=== PATIENT | male | born 1980 | race Caucasian/White ===

== ENCOUNTER 2022-03-22 11:26 | Inpatient (IN) | payer OTHER, SELFPAY ==
[2022-03-22 11:37] VITALS: BP 129/86; BP 150/93; PULSE 119; PULSE 120; RESP 16; TEMP 37.4; O2SAT 98; O2SAT 99; BMI 35.9
--- NOTE | 2022-03-22 11:43 | MHC.CARE ---
Pt was seen by N [facility] in the community and is a bedsearch
--- NOTE | 2022-03-22 11:46 | ECG_ITS ---
Test Reason : MED CLEARANCE Blood Pressure : / mmHG Vent. Rate : 124 BPM Atrial Rate : 124 BPM P-R Int : 150 ms QRS Dur : 098 ms QT Int : 330 ms P-R-T Axes : 068 013 062 degrees QTc Int : 474 ms Sinus tachycardia Otherwise normal ECG No previous ECGs available Referred By: Zachary Thorpe Electronically Signed By:GAGANDEEP VÁZQUEZ
[2022-03-22 12:14] LABS: MANUAL DIFF FLAG NO
[2022-03-22 12:18] LABS: Basophils Absolute Auto 0.1 X10*3/uL (0.0-0.2); Basophils Percent Auto 0.7 % (0-2); Eosinophils Percent Auto 0.4 % (0-4); Hematocrit 42.3 % (42.0-52.0); Hemoglobin 14.2 g/dl (14.0-18.0); Imm Gran Abs Auto 0.02 X10*3/uL (0.00-0.03); Imm Gran Pct Auto 0.2 % (0.0-0.4); Lymphocytes Absolute Auto 2.2 X10*3/uL (1.2-4.9); Lymphocytes Percent Auto 26.3 % (20-40); Mean Corpuscular HGB Conc 33.6 g/dl (31.0-36.0); Mean Corpuscular Volume 83.4 fL (80.0-98.0); Mean Platelet Volume 8.7 fL (9.4-12.4); Monocytes Absolute Auto 0.5 X10*3/uL (0.1-1.2); Monocytes Percent Auto 5.6 % (2-11); Neutrophils Absolute Auto 5.5 x10*3/uL (2.0-8.3); Neutrophils Percent Auto 66.8 % (45-73); Platelet Count 340 X10*3/uL (160-400); Red Blood Count 5.07 X10*6/uL (4.60-5.80); Red Cell Distribution Width 13.4 % (11.0-16.0); White Blood Count 8.2 X10*3/uL (4.8-10.8)
[2022-03-22 12:21] LABS: Appearance Urine Clear; Color Urine Yellow; Glucose Urine UA Negative (Negative); Leukocyte Esterase Urine Negative (Negative); Nitrite Urine Negative (Negative); PH 5.5 (5.0-9.0); Specific Gravity - Urine 1.015 (1.005-1.025); Urine Blood Negative (Negative); Urine Ketones Negative (Negative); Urine Protein Negative (Neg-Trace)
[2022-03-22 12:33] LABS: Anion Gap 15 (12-20); Blood Urea Nitrogen 14 mg/dL (9-16); Calcium 9.8 mg/dL (8.4-10.2); Carbon Dioxide 22 mmol/L (22-29); Chloride 106 mmol/L (96-108); Creatinine Clr Calc Pharmacy 158.4; Estimated Glomerular Filt Rate > 60; Ethanol < 10 mg/dL; Glucose Random 163 mg/dL (60-115); Potassium 4.5 mmol/L (3.3-5.1); Sodium 138 mmol/L (135-145)
--- NOTE | 2022-03-22 12:34 | ED.PSYCH ---
HPI - Psych General Chief Complaint: Psychiatric Symptoms <Zachary Thorpe MD - Last Filed: 03/26/22 06:33> Stated Complaint: SECT 12,SI W/PLAN PER EMS <Zachary Thorpe MD - Last Filed: 03/26/22 06:33> Time Seen by Provider: 03/22/22 11:30 <Zachary Thorpe MD - Last Filed: 03/26/22 06:33> Source: patient and EMS <Zachary Thorpe MD - Last Filed: 03/26/22 06:33> History of Present Illness HPI Narrative: patient with a long history of depression states he is feeling suicidal today after an argument with a neighbor. His plan was to slit his wrist. EMS arrived before he attempted to harm himself. Last hospitalization was 2 months ago at [facility] for similar presentation. He states he has been taking his medication without missing doses. Last doses were this morning. Medication includes Depakote, lithium, Clozaril, risperidone, metformin, insulin. He denies physical complaints. No recent illness or change of medication. <Zachary Thorpe MD - Last Filed: 03/26/22 06:33> Related Data Home Medications: Home Medications Medication Instructions Recorded Confirmed clozapine 100 mg tablet 300 mg PO BEDTIME 03/22/22 03/22/22 clozapine 25 mg tablet 2 tab PO DAILY 03/22/22 03/22/22 divalproex 500 mg tablet,delayed 4 tab PO BEDTIME 03/22/22 03/22/22 release docusate sodium 100 mg capsule 1 cap PO DAILY PRN Constipation 03/22/22 03/22/22 insulin glargine 100 unit/mL (3 40 unit subcut DAILY 03/22/22 03/22/22 mL) subcutaneous pen (Lantus Solostar U-100 Insulin) lithium carbonate 300 mg capsule 1 cap PO BID 03/22/22 03/22/22 lorazepam 0.5 mg tablet 1 tab PO DAILY PRN Anxiety 03/22/22 03/22/22 metformin 1,000 mg tablet 1 tab PO BIDWM 03/22/22 03/22/22 risperidone 2 mg tablet 2 mg PO BID 03/22/22 03/22/22 sitagliptin 100 mg tablet (Januvia) 1 tab PO DAILY 03/22/22 03/22/22 <Zachary Thorpe MD - Last Filed: 03/26/22 06:33> Allergies/Adverse Reactions: Allergies Allergy/AdvReac Type Severity Reaction Status Date / Time No Known Allergies Allergy Verified 03/22/22 11:45 <Zachary Thorpe MD - Last Filed: 03/26/22 06:33> Review of Systems Constitutional: Comments: No fevers chills or weakness <Zachary Thorpe MD - Last Filed: 03/26/22 06:33> Cardiovascular: Comments: no chest pain <Zachary Thorpe MD - Last Filed: 03/26/22 06:33> Respiratory: Comments: no cough or shortness of breath <Zachary Thorpe MD - Last Filed: 03/26/22 06:33> Gastrointestinal: Comments: no abdominal pain <Zachary Thorpe MD - Last Filed: 03/26/22 06:33> Integumentary/Breasts: Comments: no rash <Zachary Thorpe MD - Last Filed: 03/26/22 06:33> Neurologic: Comments: no focal weakness <Zachary Thorpe MD - Last Filed: 03/26/22 06:33> [facility] Social History Social History: Social History Household Members: None Housing: Apartment Do you presently have visiting nurse or other home services: No Patient Tobacco Use Status: Current someday Tobacco user Tobacco use type: Cigarette Cigarette Packs Per Day: 0.3 Cigarettes Per Day: 6.0 Smoked in Last 30 Days: Yes e-Cigarette/Vaping Use: Never Used Patient Interested in Nicotine Replacement: Yes Patient Given Instructions on How to Stop Smoking: No Second Hand Smoke Exposure: No Use of substances other than those prescribed or required for medical reasons: No Currently Displaying Signs/Symptoms of Drug Intoxication Withdrawal: No Have you been hit, kicked, punched, or otherwise hurt by someone within the past year? If so, by whom?: No Do you feel safe in your current relationship?: No Current Relationship Is there a partner from a previous relationship who is making you feel unsafe now?: No Are you made to feel afraid or neglected: No Spiritual Healthcare Practices: Patient denies. Yarsani Healthcare Practices: Patient denies. Cultural Healthcare Practices: Patient denies. Advance Directives: No Advance Directives Information Provided: Yes Do you have thoughts of harming others: None Do you have a plan to hurt others: No Plan Recently lost weight without trying: Yes How much weight loss: 2-13 pounds Eating poorly because of decreased appetite: No Nutrition screen score: 3 Nutrition Risks: No Nutritional Risk Poor oral hygiene: Yes service: No Sexual orientation: Don't Know <Zachary Thorpe MD - Last Filed: 03/26/22 06:33> Physical Exam Vital Signs: Vital Signs: Last Vital Signs Temp 97.6 F 03/25/22 19:15 Pulse 128 H 03/25/22 19:15 Resp 16 03/25/22 19:15 BP 132/93 H 03/25/22 19:15 Pulse Ox 97 03/25/22 19:15 O2 Del Method 03/25/22 19:15 BMI result Body Mass Index 35.9 <Zachary Thorpe MD - Last Filed: 03/26/22 06:33> Vital Signs: Last Vital Signs Temp 97.6 F 03/25/22 19:15 Pulse 128 H 03/25/22 19:15 Resp 16 03/25/22 19:15 BP 132/93 H 03/25/22 19:15 Pulse Ox 97 03/25/22 19:15 O2 Del Method 03/25/22 19:15 BMI result Body Mass Index 35.9 <Greg Wu MD - Last Filed: 03/23/22 08:26> Const: Other: awake and alert in no acute distress <Zachary Thorpe MD - Last Filed: 03/26/22 06:33> Resp: Other: clear and equal bilaterally with good air entry. <Zachary Thorpe MD - Last Filed: 03/26/22 06:33> Cardio: Other: Regular rhythm. Mildly tachycardic. No murmurs rubs or gallops <Zachary Thorpe MD - Last Filed: 03/26/22 06:33> GI: Other: soft nontender nondistended <Zachary Thorpe MD - Last Filed: 03/26/22 06:33> Skin: Other: warm pink and dry without obvious rash <Zachary Thorpe MD - Last Filed: 03/26/22 06:33> Neuro: Other: no focal neuro deficits <Zachary Thorpe MD - Last Filed: 03/26/22 06:33> Course Course Course Narrative: depression with suicidal ideation. 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 Crisis consultation 20:34. Patient remains bed search. On medication reconciliation, it is noted that he is on Clozaril. His lab work, however, shows very low levels of lithium and valproic acid, Possibly indicating medication noncompliance. Will hold off on Clozaril until we are able to further delineate, and if he is not taking Clozaril over the past few days should restart at lower dosage, 12.5 mg b.i.d.. <Zachary Thorpe MD - Last Filed: 03/26/22 06:33> Reevaluation(s) Reevaluation #1: physician observation: patient still being evaluated for his depression while a bedsearch is occurring. Patient is calm and cooperative, non compliant with his medication <Greg Wu MD - Last Filed: 03/23/22 08:26> Time: 08:23 <Greg Wu MD - Last Filed: 03/23/22 08:26> MDM - Psych Lab Data Result diagrams: : 03/22/22 12:05 03/24/22 09:06 <Zachary Thorpe MD - Last Filed: 03/26/22 06:33> Labs: Lab Results 03/22/22 03/22/22 03/22/22 Range/Units 12:05 12:05 12:06 WBC 8.2 (4.8-10.8) X10*3/uL RBC 5.07 (4.60-5.80) X10*6/uL Hgb 14.2 (14.0-18.0) g/dl Hct 42.3 (42.0-52.0) % MCV 83.4 (80.0-98.0) fL MCH 28.0 (27.0-33.0) pg MCHC 33.6 (31.0-36.0) g/dl RDW 13.4 (11.0-16.0) % Plt Count 340 (160-400) X10*3/uL MPV 8.7 L (9.4-12.4) fL Immature Gran % (Auto) 0.2 (0.0-0.4) % Neut % (Auto) 66.8 (45-73) % Lymph % (Auto) 26.3 (20-40) % Falls % (Auto) 5.6 (2-11) % Eos % (Auto) 0.4 (0-4) % Baso % (Auto) 0.7 (0-2) % Lymph # (Auto) 2.2 (1.2-4.9) X10*3/uL Falls # (Auto) 0.5 (0.1-1.2) X10*3/uL Eos # (Auto) 0.0 (0.0-0.4) X10*3/uL Baso # (Auto) 0.1 (0.0-0.2) X10*3/uL Abs Immat Gran (auto) 0.02 (0.00-0.03) X10*3/uL Absolute Neuts (auto) 5.5 (2.0-8.3) x10*3/uL Absolute Nucleated RBC 0.000 (0.0-0.012) X10*3/uL Nucleated RBC % (auto) 0.0 (0.0-0.2) /100WBC Sodium 138 (135-145) mmol/L Potassium 4.5 (3.3-5.1) mmol/L Chloride 106 (96-108) mmol/L Carbon Dioxide 22 (22-29) mmol/L Anion Gap 15 (12-20) BUN 14 (9-16) mg/dL Creatinine 0.86 (0.5-1.4) mg/dL Estim Creat Clear Calc 158.4 Estimated GFR > 60 POC Glucose (60-115) mg/dL Random Glucose 163 H (60-115) mg/dL Calcium 9.8 (8.4-10.2) mg/dL Urine Color Urine Appearance Urine pH (5.0-9.0) Ur Specific [place] (1.005-1.025) Urine Protein (Neg-Trace) mg/dL Urine Glucose (UA) (Negative) mg/dL Urine Ketones (Negative) mg/dL Urine Blood (Negative) Urine Nitrite (Negative) Ur Leukocyte Esterase (Negative) Urine Opiates Screen (Not Detect) Urine Fentanyl Screen (Not Detect) Ur Barbiturates Screen (Not Detect) Valproic Acid (50.0-100.0) mcg/mL Ur Phencyclidine Scrn (Not Detect) Ur Amphetamines Screen (Not Detect) U Benzodiazepines Scrn (Not Detect) [place] (0.60-1.20) mmol/L Urine Cocaine Screen (Not Detect) U Marijuana (THC) Screen (Not Detect) Ethyl Alcohol < 10 mg/dL COVID-19 (BELEM) Negative (Negative) COVID-19 Clin Com See Note 03/22/22 03/22/22 03/22/22 Range/Units 12:06 12:06 15:39 WBC (4.8-10.8) X10*3/uL RBC (4.60-5.80) X10*6/uL Hgb (14.0-18.0) g/dl Hct (42.0-52.0) % MCV (80.0-98.0) fL MCH (27.0-33.0) pg MCHC (31.0-36.0) g/dl RDW (11.0-16.0) % Plt Count (160-400) X10*3/uL MPV (9.4-12.4) fL Immature Gran % (Auto) (0.0-0.4) % Neut % (Auto) (45-73) % Lymph % (Auto) (20-40) % Falls % (Auto) (2-11) % Eos % (Auto) (0-4) % Baso % (Auto) (0-2) % Lymph # (Auto) (1.2-4.9) X10*3/uL Falls # (Auto) (0.1-1.2) X10*3/uL Eos # (Auto) (0.0-0.4) X10*3/uL Baso # (Auto) (0.0-0.2) X10*3/uL Abs Immat Gran (auto) (0.00-0.03) X10*3/uL Absolute Neuts (auto) (2.0-8.3) x10*3/uL Absolute Nucleated RBC (0.0-0.012) X10*3/uL Nucleated RBC % (auto) (0.0-0.2) /100WBC Sodium (135-145) mmol/L Potassium (3.3-5.1) mmol/L Chloride (96-108) mmol/L Carbon Dioxide (22-29) mmol/L Anion Gap (12-20) BUN (9-16) mg/dL Creatinine (0.5-1.4) mg/dL Estim Creat Clear Calc Estimated GFR POC Glucose (60-115) mg/dL Random Glucose (60-115) mg/dL Calcium (8.4-10.2) mg/dL Urine Color Yellow Urine Appearance Clear Urine pH 5.5 (5.0-9.0) Ur Specific [place] 1.015 (1.005-1.025) Urine Protein Negative (Neg-Trace) mg/dL Urine Glucose (UA) Negative (Negative) mg/dL Urine Ketones Negative (Negative) mg/dL Urine Blood Negative (Negative) Urine Nitrite Negative (Negative) Ur Leukocyte Esterase Negative (Negative) Urine Opiates Screen Not Detected (Not Detect) Urine Fentanyl Screen Not Detected (Not Detect) Ur Barbiturates Screen Not Detected (Not Detect) Valproic Acid < 2.0 L (50.0-100.0) mcg/mL Ur Phencyclidine Scrn Not Detected (Not Detect) Ur Amphetamines Screen Not Detected (Not Detect) U Benzodiazepines Scrn Not Detected (Not Detect) [place] (0.60-1.20) mmol/L Urine Cocaine Screen Not Detected (Not Detect) U Marijuana (THC) Screen Not Detected (Not Detect) Ethyl Alcohol mg/dL COVID-19 (BELEM) (Negative) COVID-19 Clin Com 03/22/22 03/22/22 03/23/22 Range/Units 15:39 23:37 09:08 WBC (4.8-10.8) X10*3/uL RBC (4.60-5.80) X10*6/uL Hgb (14.0-18.0) g/dl Hct (42.0-52.0) % MCV (80.0-98.0) fL MCH (27.0-33.0) pg MCHC (31.0-36.0) g/dl RDW (11.0-16.0) % Plt Count (160-400) X10*3/uL MPV (9.4-12.4) fL Immature Gran % (Auto) (0.0-0.4) % Neut % (Auto) (45-73) % Lymph % (Auto) (20-40) % Falls % (Auto) (2-11) % Eos % (Auto) (0-4) % Baso % (Auto) (0-2) % Lymph # (Auto) (1.2-4.9) X10*3/uL Falls # (Auto) (0.1-1.2) X10*3/uL Eos # (Auto) (0.0-0.4) X10*3/uL Baso # (Auto) (0.0-0.2) X10*3/uL Abs Immat Gran (auto) (0.00-0.03) X10*3/uL Absolute Neuts (auto) (2.0-8.3) x10*3/uL Absolute Nucleated RBC (0.0-0.012) X10*3/uL Nucleated RBC % (auto) (0.0-0.2) /100WBC Sodium (135-145) mmol/L Potassium (3.3-5.1) mmol/L Chloride (96-108) mmol/L Carbon Dioxide (22-29) mmol/L Anion Gap (12-20) BUN (9-16) mg/dL Creatinine (0.5-1.4) mg/dL Estim Creat Clear Calc Estimated GFR POC Glucose 132 H (60-115) mg/dL Random Glucose (60-115) mg/dL Calcium (8.4-10.2) mg/dL Urine Color Urine Appearance Urine pH (5.0-9.0) Ur Specific [place] (1.005-1.025) Urine Protein (Neg-Trace) mg/dL Urine Glucose (UA) (Negative) mg/dL Urine Ketones (Negative) mg/dL Urine Blood (Negative) Urine Nitrite (Negative) Ur Leukocyte Esterase (Negative) Urine Opiates Screen (Not Detect) Urine Fentanyl Screen (Not Detect) Ur Barbiturates Screen (Not Detect) Valproic Acid (50.0-100.0) mcg/mL Ur Phencyclidine Scrn (Not Detect) Ur Amphetamines Screen (Not Detect) U Benzodiazepines Scrn (Not Detect) [place] 0.08 L (0.60-1.20) mmol/L Urine Cocaine Screen (Not Detect) U Marijuana (THC) Screen (Not Detect) Ethyl Alcohol mg/dL COVID-19 (BELEM) Negative (Negative) COVID-19 Clin Com See Note 03/23/22 Range/Units 12:28 WBC (4.8-10.8) X10*3/uL RBC (4.60-5.80) X10*6/uL Hgb (14.0-18.0) g/dl Hct (42.0-52.0) % MCV (80.0-98.0) fL MCH (27.0-33.0) pg MCHC (31.0-36.0) g/dl RDW (11.0-16.0) % Plt Count (160-400) X10*3/uL MPV (9.4-12.4) fL Immature Gran % (Auto) (0.0-0.4) % Neut % (Auto) (45-73) % Lymph % (Auto) (20-40) % Falls % (Auto) (2-11) % Eos % (Auto) (0-4) % Baso % (Auto) (0-2) % Lymph # (Auto) (1.2-4.9) X10*3/uL Falls # (Auto) (0.1-1.2) X10*3/uL Eos # (Auto) (0.0-0.4) X10*3/uL Baso # (Auto) (0.0-0.2) X10*3/uL Abs Immat Gran (auto) (0.00-0.03) X10*3/uL Absolute Neuts (auto) (2.0-8.3) x10*3/uL Absolute Nucleated RBC (0.0-0.012) X10*3/uL Nucleated RBC % (auto) (0.0-0.2) /100WBC Sodium (135-145) mmol/L Potassium (3.3-5.1) mmol/L Chloride (96-108) mmol/L Carbon Dioxide (22-29) mmol/L Anion Gap (12-20) BUN (9-16) mg/dL Creatinine (0.5-1.4) mg/dL Estim Creat Clear Calc Estimated GFR POC Glucose 128 H (60-115) mg/dL Random Glucose (60-115) mg/dL Calcium (8.4-10.2) mg/dL Urine Color Urine Appearance Urine pH (5.0-9.0) Ur Specific [place] (1.005-1.025) Urine Protein (Neg-Trace) mg/dL Urine Glucose (UA) (Negative) mg/dL Urine Ketones (Negative) mg/dL Urine Blood (Negative) Urine Nitrite (Negative) Ur Leukocyte Esterase (Negative) Urine Opiates Screen (Not Detect) Urine Fentanyl Screen (Not Detect) Ur Barbiturates Screen (Not Detect) Valproic Acid (50.0-100.0) mcg/mL Ur Phencyclidine Scrn (Not Detect) Ur Amphetamines Screen (Not Detect) U Benzodiazepines Scrn (Not Detect) [place] (0.60-1.20) mmol/L Urine Cocaine Screen (Not Detect) U Marijuana (THC) Screen (Not Detect) Ethyl Alcohol mg/dL COVID-19 (BELEM) (Negative) COVID-19 Clin Com <Zachary Thorpe MD - Last Filed: 03/26/22 06:33> Lab Results 03/22/22 03/22/22 03/22/22 Range/Units 12:05 12:05 12:06 WBC 8.2 (4.8-10.8) X10*3/uL RBC 5.07 (4.60-5.80) X10*6/uL Hgb 14.2 (14.0-18.0) g/dl Hct 42.3 (42.0-52.0) % MCV 83.4 (80.0-98.0) fL MCH 28.0 (27.0-33.0) pg MCHC 33.6 (31.0-36.0) g/dl RDW 13.4 (11.0-16.0) % Plt Count 340 (160-400) X10*3/uL MPV 8.7 L (9.4-12.4) fL Immature Gran % (Auto) 0.2 (0.0-0.4) % Neut % (Auto) 66.8 (45-73) % Lymph % (Auto) 26.3 (20-40) % Falls % (Auto) 5.6 (2-11) % Eos % (Auto) 0.4 (0-4) % Baso % (Auto) 0.7 (0-2) % Lymph # (Auto) 2.2 (1.2-4.9) X10*3/uL Falls # (Auto) 0.5 (0.1-1.2) X10*3/uL Eos # (Auto) 0.0 (0.0-0.4) X10*3/uL Baso # (Auto) 0.1 (0.0-0.2) X10*3/uL Abs Immat Gran (auto) 0.02 (0.00-0.03) X10*3/uL Absolute Neuts (auto) 5.5 (2.0-8.3) x10*3/uL Absolute Nucleated RBC 0.000 (0.0-0.012) X10*3/uL Nucleated RBC % (auto) 0.0 (0.0-0.2) /100WBC Sodium 138 (135-145) mmol/L Potassium 4.5 (3.3-5.1) mmol/L Chloride 106 (96-108) mmol/L Carbon Dioxide 22 (22-29) mmol/L Anion Gap 15 (12-20) BUN 14 (9-16) mg/dL Creatinine 0.86 (0.5-1.4) mg/dL Estim Creat Clear Calc 158.4 Estimated GFR > 60 POC Glucose (60-115) mg/dL Random Glucose 163 H (60-115) mg/dL Calcium 9.8 (8.4-10.2) mg/dL Urine Color Urine Appearance Urine pH (5.0-9.0) Ur Specific [place] (1.005-1.025) Urine Protein (Neg-Trace) mg/dL Urine Glucose (UA) (Negative) mg/dL Urine Ketones (Negative) mg/dL Urine Blood (Negative) Urine Nitrite (Negative) Ur Leukocyte Esterase (Negative) Urine Opiates Screen (Not Detect) Urine Fentanyl Screen (Not Detect) Ur Barbiturates Screen (Not Detect) Valproic Acid (50.0-100.0) mcg/mL Ur Phencyclidine Scrn (Not Detect) Ur Amphetamines Screen (Not Detect) U Benzodiazepines Scrn (Not Detect) [place] (0.60-1.20) mmol/L Urine Cocaine Screen (Not Detect) U Marijuana (THC) Screen (Not Detect) Ethyl Alcohol < 10 mg/dL COVID-19 (BELEM) Negative (Negative) COVID-19 Clin Com See Note 09/19/22 09/19/22 09/19/22 Range/Units 12:06 12:06 15:39 WBC (4.8-10.8) X10*3/uL RBC (4.60-5.80) X10*6/uL Hgb (14.0-18.0) g/dl Hct (42.0-52.0) % MCV (80.0-98.0) fL MCH (27.0-33.0) pg MCHC (31.0-36.0) g/dl RDW (11.0-16.0) % Plt Count (160-400) X10*3/uL MPV (9.4-12.4) fL Immature Gran % (Auto) (0.0-0.4) % Neut % (Auto) (45-73) % Lymph % (Auto) (20-40) % Falls % (Auto) (2-11) % Eos % (Auto) (0-4) % Baso % (Auto) (0-2) % Lymph # (Auto) (1.2-4.9) X10*3/uL Falls # (Auto) (0.1-1.2) X10*3/uL Eos # (Auto) (0.0-0.4) X10*3/uL Baso # (Auto) (0.0-0.2) X10*3/uL Abs Immat Gran (auto) (0.00-0.03) X10*3/uL Absolute Neuts (auto) (2.0-8.3) x10*3/uL Absolute Nucleated RBC (0.0-0.012) X10*3/uL Nucleated RBC % (auto) (0.0-0.2) /100WBC Sodium (135-145) mmol/L Potassium (3.3-5.1) mmol/L Chloride (96-108) mmol/L Carbon Dioxide (22-29) mmol/L Anion Gap (12-20) BUN (9-16) mg/dL Creatinine (0.5-1.4) mg/dL Estim Creat Clear Calc Estimated GFR POC Glucose (60-115) mg/dL Random Glucose (60-115) mg/dL Calcium (8.4-10.2) mg/dL Urine Color Yellow Urine Appearance Clear Urine pH 5.5 (5.0-9.0) Ur Specific [place] 1.015 (1.005-1.025) Urine Protein Negative (Neg-Trace) mg/dL Urine Glucose (UA) Negative (Negative) mg/dL Urine Ketones Negative (Negative) mg/dL Urine Blood Negative (Negative) Urine Nitrite Negative (Negative) Ur Leukocyte Esterase Negative (Negative) Urine Opiates Screen Not Detected (Not Detect) Urine Fentanyl Screen Not Detected (Not Detect) Ur Barbiturates Screen Not Detected (Not Detect) Valproic Acid < 2.0 L (50.0-100.0) mcg/mL Ur Phencyclidine Scrn Not Detected (Not Detect) Ur Amphetamines Screen Not Detected (Not Detect) U Benzodiazepines Scrn Not Detected (Not Detect) [place] (0.60-1.20) mmol/L Urine Cocaine Screen Not Detected (Not Detect) U Marijuana (THC) Screen Not Detected (Not Detect) Ethyl Alcohol mg/dL COVID-19 (BELEM) (Negative) COVID-19 Clin Com 03/22/22 03/22/22 03/23/22 Range/Units 15:39 23:37 09:08 WBC (4.8-10.8) X10*3/uL RBC (4.60-5.80) X10*6/uL Hgb (14.0-18.0) g/dl Hct (42.0-52.0) % MCV (80.0-98.0) fL MCH (27.0-33.0) pg MCHC (31.0-36.0) g/dl RDW (11.0-16.0) % Plt Count (160-400) X10*3/uL MPV (9.4-12.4) fL Immature Gran % (Auto) (0.0-0.4) % Neut % (Auto) (45-73) % Lymph % (Auto) (20-40) % Falls % (Auto) (2-11) % Eos % (Auto) (0-4) % Baso % (Auto) (0-2) % Lymph # (Auto) (1.2-4.9) X10*3/uL [place] # (Auto) (0.1-1.2) X10*3/uL Eos # (Auto) (0.0-0.4) X10*3/uL Baso # (Auto) (0.0-0.2) X10*3/uL Abs Immat Gran (auto) (0.00-0.03) X10*3/uL Absolute Neuts (auto) (2.0-8.3) x10*3/uL Absolute Nucleated RBC (0.0-0.012) X10*3/uL Nucleated RBC % (auto) (0.0-0.2) /100WBC Sodium (135-145) mmol/L Potassium (3.3-5.1) mmol/L Chloride (96-108) mmol/L Carbon Dioxide (22-29) mmol/L Anion Gap (12-20) BUN (9-16) mg/dL Creatinine (0.5-1.4) mg/dL Estim Creat Clear Calc Estimated GFR POC Glucose 132 H (60-115) mg/dL Random Glucose (60-115) mg/dL Calcium (8.4-10.2) mg/dL Urine Color Urine Appearance Urine pH (5.0-9.0) Ur Specific [place] (1.005-1.025) Urine Protein (Neg-Trace) mg/dL Urine Glucose (UA) (Negative) mg/dL Urine Ketones (Negative) mg/dL Urine Blood (Negative) Urine Nitrite (Negative) Ur Leukocyte Esterase (Negative) Urine Opiates Screen (Not Detect) Urine Fentanyl Screen (Not Detect) Ur Barbiturates Screen (Not Detect) Valproic Acid (50.0-100.0) mcg/mL Ur Phencyclidine Scrn (Not Detect) Ur Amphetamines Screen (Not Detect) U Benzodiazepines Scrn (Not Detect) [place] 0.08 L (0.60-1.20) mmol/L Urine Cocaine Screen (Not Detect) U Marijuana (THC) Screen (Not Detect) Ethyl Alcohol mg/dL COVID-19 (BELEM) Negative (Negative) COVID-19 Clin Com See Note 03/23/22 Range/Units 12:28 WBC (4.8-10.8) X10*3/uL RBC (4.60-5.80) X10*6/uL Hgb (14.0-18.0) g/dl Hct (42.0-52.0) % MCV (80.0-98.0) fL MCH (27.0-33.0) pg MCHC (31.0-36.0) g/dl RDW (11.0-16.0) % Plt Count (160-400) X10*3/uL MPV (9.4-12.4) fL Immature Gran % (Auto) (0.0-0.4) % Neut % (Auto) (45-73) % Lymph % (Auto) (20-40) % Falls % (Auto) (2-11) % Eos % (Auto) (0-4) % Baso % (Auto) (0-2) % Lymph # (Auto) (1.2-4.9) X10*3/uL Falls # (Auto) (0.1-1.2) X10*3/uL Eos # (Auto) (0.0-0.4) X10*3/uL Baso # (Auto) (0.0-0.2) X10*3/uL Abs Immat Gran (auto) (0.00-0.03) X10*3/uL Absolute Neuts (auto) (2.0-8.3) x10*3/uL Absolute Nucleated RBC (0.0-0.012) X10*3/uL Nucleated RBC % (auto) (0.0-0.2) /100WBC Sodium (135-145) mmol/L Potassium (3.3-5.1) mmol/L Chloride (96-108) mmol/L Carbon Dioxide (22-29) mmol/L Anion Gap (12-20) BUN (9-16) mg/dL Creatinine (0.5-1.4) mg/dL Estim Creat Clear Calc Estimated GFR POC Glucose 128 H (60-115) mg/dL Random Glucose (60-115) mg/dL Calcium (8.4-10.2) mg/dL Urine Color Urine Appearance Urine pH (5.0-9.0) Ur Specific [place] (1.005-1.025) Urine Protein (Neg-Trace) mg/dL Urine Glucose (UA) (Negative) mg/dL Urine Ketones (Negative) mg/dL Urine Blood (Negative) Urine Nitrite (Negative) Ur Leukocyte Esterase (Negative) Urine Opiates Screen (Not Detect) Urine Fentanyl Screen (Not Detect) Ur Barbiturates Screen (Not Detect) Valproic Acid (50.0-100.0) mcg/mL Ur Phencyclidine Scrn (Not Detect) Ur Amphetamines Screen (Not Detect) U Benzodiazepines Scrn (Not Detect) [place] (0.60-1.20) mmol/L Urine Cocaine Screen (Not Detect) U Marijuana (THC) Screen (Not Detect) Ethyl Alcohol mg/dL COVID-19 (BELEM) (Negative) COVID-19 Clin Com <Greg Wu MD - Last Filed: 03/23/22 08:26> Discharge Plan Discharge Clinical Impression: Suicidal ideation, Schizophrenia <Zachary Thorpe MD - Last Filed: 03/26/22 06:33> Patient Disposition: Admitted As Inpatient <Zachary Thorpe MD - Last Filed: 03/26/22 06:33> Interventions: Admission Worksheet (ED) Last Done: 03/23/22 14:21 <Zachary Thorpe MD - Last Filed: 03/26/22 06:33> Discharge Date/Time: 03/23/22 14:21 <Zachary Thorpe MD - Last Filed: 03/26/22 06:33>
[2022-03-22 12:35] LABS: Amphetamine Screen Urine Not Detected (Not Detect); Barbiturates, Urine Not Detected (Not Detect); Benzodiazepines Screen Urine Not Detected (Not Detect); Cannabinoid Screen Urine Not Detected (Not Detect); Cocaine Screen Urine Not Detected (Not Detect); Fentanyl, urine Not Detected (Not Detect); Opiate Screen Urine Not Detected (Not Detect); Phencyclidine Screen Urine Not Detected (Not Detect)
[2022-03-22 12:43] LABS: COVID-19 Test Negative (Negative); IDNOW Serial# 16C4AD1C
--- NOTE | 2022-03-22 14:57 | PC.NURSE ---
PT QUIET IN ROOM AFTER EATING LUNCH.
--- NOTE | 2022-03-22 15:27 | PC.NURSE ---
[facility] OUTREACH TEAM CALLED TO INQUIRE ABOUT PT. STAFF CHERYL MESESR IF NATHALY AGREES TO SHARE DISPOSITION -[phone]
--- NOTE | 2022-03-22 15:51 | PC.NURSE ---
PT BECAME MORE ANXIOUS AND AGITATED AFTER STAFF REQUESTED AN ADDITIONAL LAB DRAW. HE COOPERATED BUT IS REPETITIVE IN REQUESTING THE NEED FOR A [employer] LE[employer]. HE IS NOT REDIRECTABLE AT THIS TIME. BUT RETURNED TO HIS ROOM. HE DECLINED MEDS FOR HIS STATEMENT OF FEELING UNSAFE AND ANXIETY
[2022-03-22 16:01] LABS: Lithium 0.08 mmol/L (0.60-1.20)
[2022-03-22 16:13] LABS: Valproate < 2.0 mcg/mL (50.0-100.0)
--- NOTE | 2022-03-22 17:13 | PHA.MEDREC ---
Pharmacy Consult ? Medication Reconciliation Pharmacy has completed the medication reconciliation. Spoke with patient in the . Patient last took meds this morning. Patient states his clozaril dose is 50 mg in the am and 300 mg in the evening.
--- NOTE | 2022-03-22 17:27 | PC.NURSE ---
PT DEMONSTRATING A REPETITIVE BEHAVIOR OF PUTTING HIMSELF DOWN ON THE FLOOR. HE STATES HE DROPPED SOMETHING AND THEN LIES DOWN. HE LAUGHS AND GETS BACK UP
[2022-03-22] MEDS: LORazepam 0.5 MG TABLET PO (22:57)
[2022-03-22] MEDS: cloZAPine 25 MG TABLET 12.5 MG PO (22:57)
[2022-03-22 23:33] VITALS: BP 150/86; PULSE 100; RESP 18; TEMP 36.3; O2SAT 97
[2022-03-22 23:40] LABS: Glucose, Whole Blood 132 mg/dL (60-115)
--- NOTE | 2022-03-23 05:26 | PC.NURSE ---
Patient slept though the night, no distress observed/reported, patient reported e is compliant with his medication which is inconsistent with lab result. Depakote and lithium lab level which is low indicative of non compliant with medication, provider held the regular clozaril dose, initiated 12.5 mf BID/first dose administered last night, medication compliant, speech pressured/thought content delayed, thought process tangential, VS unremarkable, disposition per [facility] is section 12 inpatient bed search, will continue to monitor.
--- NOTE | 2022-03-23 07:25 | PC.NURSE ---
patient appears to remain at rest at present respirations are even and unlabored patient appears in no distress.
[2022-03-23] MEDS: cloZAPine 25 MG TABLET 12.5 MG PO ×2 (08:20→20:27)
[2022-03-23] MEDS: Insulin Glargine,Hum.rec.anlog 100 UNIT/ML 10 ML VIAL 40 UNIT SUBCUT (08:20)
[2022-03-23] MEDS: metFORMIN HCl 1,000 MG TABLET 1000 MG PO ×2 (08:20→17:01)
[2022-03-23] MEDS: risperiDONE 2 MG TABLET PO ×2 (08:20→20:27)
[2022-03-23] MEDS: Lithium Carbonate 300 MG CAPSULE PO ×2 (08:20→20:27)
[2022-03-23 09:12] VITALS: BP 141/93; PULSE 120; RESP 19; TEMP 36.3; O2SAT 97
[2022-03-23] MEDS: SITagliptin Phosphate 100 MG TABLET PO (09:29)
[2022-03-23 09:38] LABS: COVID-19 Test Negative (Negative)
[2022-03-23 12:35] LABS: Glucose, Whole Blood 128 mg/dL (60-115)
[2022-03-23 14:00] VITALS: BP 138/87; PULSE 118; RESP 16; TEMP 36.4; O2SAT 98
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
[2022-03-23] MEDS: Milk of Magnesia 30 ML ORAL.SUSP PO ×2 (18:13→20:28)
[2022-03-23 20:25] VITALS: BP 164/92; PULSE 136; RESP 20; TEMP 36.7; O2SAT 98
[2022-03-23] MEDS: hydrOXYzine HCL 25 MG TABLET PO (20:27)
[2022-03-23] MEDS: Divalproex Sodium 500 MG TABLET.DR 2000 MG PO (20:27)
[2022-03-23 20:38] LABS: Glucose, Whole Blood 117 mg/dL (60-115)
[2022-03-24 08:30] VITALS: BP 130/77; PULSE 114; RESP 20; TEMP 36.7; O2SAT 98
[2022-03-24] MEDS: Lithium Carbonate 300 MG CAPSULE PO ×2 (08:42→21:05)
[2022-03-24] MEDS: SITagliptin Phosphate 100 MG TABLET PO (08:43)
[2022-03-24] MEDS: metFORMIN HCl 1,000 MG TABLET 1000 MG PO ×2 (08:43→16:54)
[2022-03-24] MEDS: risperiDONE 2 MG TABLET PO ×2 (08:43→21:05)
[2022-03-24] MEDS: cloZAPine 25 MG TABLET 12.5 MG PO (08:43)
[2022-03-24 09:04] LABS: Glucose, Whole Blood 112 mg/dL (60-115)
[2022-03-24] MEDS: Insulin Glargine,Hum.rec.anlog 100 UNIT/ML 10 ML VIAL 40 UNIT SUBCUT (09:06)
[2022-03-24] MEDS: Milk of Magnesia 30 ML ORAL.SUSP PO (09:19)
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
[2022-03-24 09:33] LABS: Estimated Average Glucose 160 mg/dL; Hemoglobin A1c % 7.2 %
[2022-03-24 10:27] LABS: Alanine Aminotransferase 50 U/L (0-40); Albumin Level 4.6 g/dL (3.5-5.0); Alkaline Phosphatase 94 U/L (39-117); Anion Gap 14 (12-20); Aspartate Amino Transferase 42 U/L (5-37); Bilirubin Total 0.5 mg/dL (0.0-1.0); Blood Urea Nitrogen 12 mg/dL (9-16); Carbon Dioxide 24 mmol/L (22-29); Chloride 107 mmol/L (96-108); Cholesterol 128 mg/dL; Creatinine Clr Calc Pharmacy 136.2; Estimated Glomerular Filt Rate > 60; Free T4 (Free Thyroxine) 1.44 ng/dL (0.71-1.85); Glucose Fasting 109 mg/dL (60-99); HDL Cholesterol 43 mg/dL; LDL Cholesterol Calculated 73 mg/dl; Potassium 4.6 mmol/L (3.3-5.1); Sodium 140 mmol/L (135-145); Thyroid Stimulating Hormone 0.59 uIU/mL (0.32-4.0); Total Protein 7.6 g/dL (6.5-8.0); Triglycerides 61 mg/dL
[2022-03-24 10:45] LABS: Folate 11.3 ng/mL (> or = 4.0); Vitamin B12 626 pg/mL (200-900)
--- NOTE | 2022-03-24 13:39 | MHC.CLN ---
NUTRITION CONSULT FOR RECENT 10# WEIGHT LOSS. VISITED WITH PATIENT IN ROOM. STATED THAT HE IS EATING FINE. ASKED IF HE NEEDED ANY OTHER FOODS/SUPPLEMENT AND DECLINED. NO NEW NUTRITION INTERVENTIONS. RD AVAILABLE NEEDED.
[2022-03-24 17:00] LABS: Glucose, Whole Blood 124 mg/dL (60-115)
[2022-03-24 19:15] VITALS: BP 138/82; PULSE 110; RESP 16; TEMP 36.2; O2SAT 98
[2022-03-24] MEDS: Divalproex Sodium 500 MG TABLET.DR 2000 MG PO (21:05)
[2022-03-24] MEDS: cloZAPine 25 MG TABLET PO (21:05)
[2022-03-25 07:00] VITALS: BMI 67.9
[2022-03-25 08:10] VITALS: BP 131/76; RESP 18; TEMP 36.6; O2SAT 99
[2022-03-25 09:10] LABS: Glucose, Whole Blood 90 mg/dL (60-115)
[2022-03-25] MEDS: SITagliptin Phosphate 100 MG TABLET PO (09:13)
[2022-03-25] MEDS: metFORMIN HCl 1,000 MG TABLET 1000 MG PO ×2 (09:13→17:14)
[2022-03-25] MEDS: Lithium Carbonate 300 MG CAPSULE PO ×2 (09:13→20:44)
[2022-03-25] MEDS: cloZAPine 25 MG TABLET PO (09:13)
[2022-03-25] MEDS: Insulin Glargine,Hum.rec.anlog 100 UNIT/ML 10 ML VIAL 40 UNIT SUBCUT (09:14)
[2022-03-25] MEDS: risperiDONE 2 MG TABLET PO ×2 (09:14→20:43)
--- NOTE | 2022-03-25 13:30 | P.PNPSI_ITS ---
Subjective Subjective Date of Service: 03/25/22 Reason For Visit: SI/psychosis Subjective Notes: Conditional Voluntary Interim History: Pt continues to report hearing voices, flushing toilet in his room several times, when asked somewhat irritable. He denies SI/HI. He is in agreement to continue titration of clozaril. mostly in his bed, paranoia, but no aggression. No behavioral concerns Medication Compliance: Yes Review of Systems Constitutional: Reports lethargy Eyes: Reports no additional eye complaints Cardiovascular: Reports no additional cardiovascular complaints and Reports palpitations (tachycardia) Respiratory: Reports no additional respiratory complaints Gastrointestinal: Reports constipation Endocrine: Reports palpitations (tachycardia) Mental Status Exam Mental Status Exam Narrative: Appearance: casually groomed, fair hygiene in NAD Behavior:cooperative psychomotor: no agitation or retardation noted Speech:clear, onrmal rate/rhythm/volume, spontaneous Thought process:tangential but no loose associations. Thought content:paranoid delusions, hearing voices. Mood: frustrated Affect: congruent SI:none HI:none VH/AH:+AH Delusions:paranoid delusions Insight/judgment:fair x 2. Memory/cog: alert, oriented x 3. not formally tested. Diagnostics Vital Signs (24Hr): Vital Signs - 24 hr 03/24/22 19:15 03/25/22 08:10 Temperature 97.2 F 97.8 F Pulse Rate 110 H Respiratory Rate 16 18 Blood Pressure 138/82 131/76 Pulse Oximetry 98 99 Oxygen Delivery Method Room Air Room Air BMI result Body Mass Index 67.9 Labs Results: 03/22/22 12:05 03/24/22 09:06 Labs: Laboratory Results - last 48 hr 03/23/22 03/24/22 03/24/22 20:32 09:01 09:06 Sodium 140 Potassium 4.6 Chloride 107 Carbon Dioxide 24 Anion Gap 14 BUN 12 Creatinine 1.00 Estim Creat Clear Calc 136.2 Estimated GFR > 60 POC Glucose 117 H 112 Fasting Glucose 109 H Estimat Average Glucose Hemoglobin A1c % Calcium 9.0 D Total Bilirubin 0.5 AST 42 H ALT 50 H Alkaline Phosphatase 94 Total Protein 7.6 Albumin 4.6 Triglycerides 61 Cholesterol 128 LDL Cholesterol, Calc 73 HDL Cholesterol 43 Vitamin B12 Folate TSH 0.59 Free T4 1.44 03/24/22 03/24/22 03/24/22 09:06 09:06 16:53 Sodium Potassium Chloride Carbon Dioxide Anion Gap BUN Creatinine Estim Creat Clear Calc Estimated GFR POC Glucose 124 H Fasting Glucose Estimat Average Glucose 160 Hemoglobin A1c % 7.2 Calcium Total Bilirubin AST ALT Alkaline Phosphatase Total Protein Albumin Triglycerides Cholesterol LDL Cholesterol, Calc HDL Cholesterol Vitamin B12 626 Folate 11.3 TSH Free T4 03/25/22 09:05 Sodium Potassium Chloride Carbon Dioxide Anion Gap BUN Creatinine Estim Creat Clear Calc Estimated GFR POC Glucose 90 Fasting Glucose Estimat Average Glucose Hemoglobin A1c % Calcium Total Bilirubin AST ALT Alkaline Phosphatase Total Protein Albumin Triglycerides Cholesterol LDL Cholesterol, Calc HDL Cholesterol Vitamin B12 Folate TSH Free T4 Medications Medications Current Medications Acetaminophen (Acetaminophen 325 Mg Tablet) 650 mg PO Q6H PRN PRN Reason: Headache/Pain Mild Scale (1-3) Al Hydroxide/Mg Hydroxide (Magnesium Hydrox/Alum Hydrox 30 Ml Oral.Susp) 30 ml PO Q6H PRN PRN Reason: Heartburn/Nausea Clozapine (Clozapine 25 Mg Tablet) 50 mg PO BID [facility] Divalproex Sodium (Divalproex Sodium 500 Mg Tablet.Dr) 2,000 mg PO BEDTIME [facility] Last Admin: 03/24/22 21:05 Dose: 2,000 mg Docusate Sodium (Docusate Sodium 100 Mg Capsule) 100 mg PO DAILY PRN PRN Reason: Constipation Hydroxyzine HCl (Hydroxyzine Hcl 25 Mg Tablet) 25 mg PO Q6H PRN PRN Reason: Anxiety Last Admin: 03/23/22 20:27 Dose: 25 mg Insulin Glargine (Insulin Glargine,Hum.Rec.Anlog 100 Unit/Ml 10 Ml Vial) 40 unit SUBCUT DAILY [facility] Last Admin: 03/25/22 09:14 Dose: 40 unit [place] Carbonate ([place] Carbonate 300 Mg Capsule) 300 mg PO BID [facility] Last Admin: 03/25/22 09:13 Dose: 300 mg Lorazepam (Lorazepam 0.5 Mg Tablet) 0.5 mg PO DAILY PRN PRN Reason: Anxiety Last Admin: 03/22/22 22:57 Dose: 0.5 mg Magnesium Hydroxide (Milk Of Magnesia 30 Ml Oral.Susp) 30 ml PO DAILY PRN PRN Reason: Constipation Last Admin: 03/24/22 09:19 Dose: 30 ml Metformin HCl (Metformin Hcl 1,000 Mg Tablet) 1,000 mg PO BIDWM [facility] Last Admin: 03/25/22 09:13 Dose: 1,000 mg Nicotine Polacrilex (Nicotine Polacrilex 2 Mg Gum) 4 mg [place] Q2H PRN PRN Reason: Nicotine Cravings Risperidone (Risperidone 2 Mg Tablet) 2 mg PO BID [facility] Last Admin: 03/25/22 09:14 Dose: 2 mg Senna/Docusate Sodium (Sennosides/Docusate Sodium Tablet) 1 tab PO BID [facility] Sitagliptin Phosphate (Sitagliptin Phosphate 100 Mg Tablet) 100 mg PO DAILY [facility] Last Admin: 03/25/22 09:13 Dose: 100 mg Trazodone HCl (Trazodone Hcl 50 Mg Tablet) 50 mg PO BEDTIME PRN PRN Reason: Insomnia Allergies Allergies Allergy/AdvReac Type Severity Reaction Status Date / Time No Known Allergies Allergy Verified 03/22/22 11:45 Assessment & Plan Assessment & Plan (1) Schizophrenia: Status: Acute Code(s): F20.9 - Schizophrenia, unspecified Assessment and Plan: Mr. Zambrano is a 41 year-old male with hx of schizophrenia, self presented with SI with plan to cut wrist in context of increase AH and paranoid delusions. Pt reports throwing down the toilet medications as he feared they were tampered. We discussed risks, benefits and alternative treatment options. Pt agrees to restart clozaril and titrate dose. He reports constipation- add sennakot. He has tachycardia- does not want to start beta ayana. PLAN 1. Admit M3, CV, 15 min safety. 2. increase clozaril 25mg po BID- titrate daily 3. sennakot for constipation 4. collateral information 5. aftercare planning. 03/25 increase clozaril to 50mg po BID. continue daily titration of 25mg po I spent minutes with the patient and/or on the patient floor today, greater than?50% of which was spent counseling/coordinating care. Reason for contiued inpatient stay Substantial Risk for: harm to self and inability to function
[2022-03-25 19:15] VITALS: BP 132/93; PULSE 128; RESP 16; TEMP 36.4; O2SAT 97
[2022-03-25] MEDS: Sennosides/Docusate Sodium TABLET 1 TAB PO (20:43)
[2022-03-25] MEDS: cloZAPine 25 MG TABLET 50 MG PO (20:43)
[2022-03-25] MEDS: Divalproex Sodium 500 MG TABLET.DR 2000 MG PO (20:44)
[2022-03-25 21:17] LABS: Glucose, Whole Blood 143 mg/dL (60-115)
[2022-03-26 08:30] VITALS: BP 136/82; PULSE 120; TEMP 36.6; O2SAT 98
[2022-03-26] MEDS: Insulin Glargine,Hum.rec.anlog 100 UNIT/ML 10 ML VIAL 40 UNIT SUBCUT (09:13)
[2022-03-26] MEDS: cloZAPine 25 MG TABLET 50 MG PO (09:15)
[2022-03-26] MEDS: Sennosides/Docusate Sodium TABLET 1 TAB PO ×2 (09:15→20:38)
[2022-03-26] MEDS: SITagliptin Phosphate 100 MG TABLET PO (09:15)
[2022-03-26] MEDS: risperiDONE 2 MG TABLET PO ×2 (09:16→20:38)
[2022-03-26] MEDS: Lithium Carbonate 300 MG CAPSULE PO ×2 (09:16→20:37)
[2022-03-26] MEDS: metFORMIN HCl 1,000 MG TABLET 1000 MG PO ×2 (09:16→18:05)
[2022-03-26] MEDS: Magnesium Hydrox/Alum Hydrox 30 ML ORAL.SUSP PO (12:34)
--- NOTE | 2022-03-26 13:31 | HO.PSYCHPN ---
Subjective Subjective Date of Service: 03/26/22 Reason For Visit: SI/psychosis Subjective Notes: Conditional Voluntary Interim History: Pt continues to present with paranoid towards neighbors. He also continues to report AH. Some suspiciousness about his medications, inspecting them, reports they seem suspicious but in agreement to take them. No SI/HI. No aggression. Medication Compliance: Yes Review of Systems Constitutional: Reports lethargy Eyes: Reports no additional eye complaints Cardiovascular: Reports no additional cardiovascular complaints and Reports palpitations (tachycardia) Respiratory: Reports no additional respiratory complaints Gastrointestinal: Reports constipation Endocrine: Reports palpitations (tachycardia) Mental Status Exam Mental Status Exam Narrative: Appearance: casually groomed, fair hygiene in NAD Behavior:cooperative psychomotor: no agitation or retardation noted Speech:clear, onrmal rate/rhythm/volume, spontaneous Thought process:tangential but no loose associations. Thought content:paranoid delusions, hearing voices. Mood: frustrated Affect: congruent SI:none HI:none VH/AH:+AH Delusions:paranoid delusions Insight/judgment:fair x 2. Memory/cog: alert, oriented x 3. not formally tested. Diagnostics Vital Signs (24Hr): Vital Signs - 24 hr 03/25/22 19:15 03/26/22 08:30 Temperature 97.6 F 97.9 F Pulse Rate 128 H 120 H Respiratory Rate 16 Blood Pressure 132/93 H 136/82 Pulse Oximetry 97 98 Oxygen Delivery Method Room Air Room Air BMI result Body Mass Index 67.9 Labs Results: 03/22/22 12:05 03/24/22 09:06 Labs: Laboratory Results - last 48 hr 03/24/22 03/25/22 03/25/22 16:53 09:05 21:13 POC Glucose 124 H 90 143 H Medications Medications Current Medications Acetaminophen (Acetaminophen 325 Mg Tablet) 650 mg PO Q6H PRN PRN Reason: Headache/Pain Mild Scale (1-3) Al Hydroxide/Mg Hydroxide (Magnesium Hydrox/Alum Hydrox 30 Ml Oral.Susp) 30 ml PO Q6H PRN PRN Reason: Heartburn/Nausea Last Admin: 03/26/22 12:34 Dose: 30 ml Clozapine (Clozapine 25 Mg Tablet) 50 mg PO BID [facility] Last Admin: 03/26/22 09:15 Dose: 50 mg Divalproex Sodium (Divalproex Sodium 500 Mg Tablet.) 2,000 mg PO BEDTIME [facility] Last Admin: 03/25/22 20:44 Dose: 2,000 mg Hydroxyzine HCl (Hydroxyzine Hcl 25 Mg Tablet) 25 mg PO Q6H PRN PRN Reason: Anxiety Last Admin: 03/23/22 20:27 Dose: 25 mg Insulin Glargine (Insulin Glargine,Hum.Rec.Anlog 100 Unit/Ml 10 Ml Vial) 40 unit SUBCUT DAILY [facility] Last Admin: 03/26/22 09:13 Dose: 40 unit [place] Carbonate ([place] Carbonate 300 Mg Capsule) 300 mg PO BID [facility] Last Admin: 03/26/22 09:16 Dose: 300 mg Lorazepam (Lorazepam 0.5 Mg Tablet) 0.5 mg PO DAILY PRN PRN Reason: Anxiety Last Admin: 03/22/22 22:57 Dose: 0.5 mg Magnesium Hydroxide (Milk Of Magnesia 30 Ml Oral.Susp) 30 ml PO DAILY PRN PRN Reason: Constipation Last Admin: 03/24/22 09:19 Dose: 30 ml Metformin HCl (Metformin Hcl 1,000 Mg Tablet) 1,000 mg PO BIDWM [facility] Last Admin: 03/26/22 09:16 Dose: 1,000 mg Nicotine Polacrilex (Nicotine Polacrilex 2 Mg Gum) 4 mg [place] Q2H PRN PRN Reason: Nicotine Cravings Risperidone (Risperidone 2 Mg Tablet) 2 mg PO BID [facility] Last Admin: 03/26/22 09:16 Dose: 2 mg Senna/Docusate Sodium (Sennosides/Docusate Sodium Tablet) 1 tab PO BID [facility] Last Admin: 03/26/22 09:15 Dose: 1 tab Sitagliptin Phosphate (Sitagliptin Phosphate 100 Mg Tablet) 100 mg PO DAILY [facility] Last Admin: 03/26/22 09:15 Dose: 100 mg Trazodone HCl (Trazodone Hcl 50 Mg Tablet) 50 mg PO BEDTIME PRN PRN Reason: Insomnia Allergies Allergies Allergy/AdvReac Type Severity Reaction Status Date / Time No Known Allergies Allergy Verified 03/22/22 11:45 Assessment & Plan Assessment & Plan (1) Schizophrenia: Status: Acute Code(s): F20.9 - Schizophrenia, unspecified Assessment and Plan: Mr. Zambrano is a 41 year-old male with hx of schizophrenia, self presented with SI with plan to cut wrist in context of increase AH and paranoid delusions. Pt reports throwing down the toilet medications as he feared they were tampered. We discussed risks, benefits and alternative treatment options. Pt agrees to restart clozaril and titrate dose. He reports constipation- add sennakot. He has tachycardia- does not want to start beta ayana. PLAN 1. Admit M3, CV, 15 min safety. 2. increase clozaril 25mg po BID- titrate daily 3. sennakot for constipation 4. collateral information 5. aftercare planning. 03/25 increase clozaril to 50mg po BID. continue daily titration of 25mg po 03/26 increase clozaril to 75mg po BID I spent minutes with the patient and/or on the patient floor today, greater than?50% of which was spent counseling/coordinating care. Reason for contiued inpatient stay Substantial Risk for: harm to self and inability to function
[2022-03-26 18:00] VITALS: BP 150/84; PULSE 125; RESP 19; TEMP 36.4; O2SAT 98
[2022-03-26] MEDS: Divalproex Sodium 500 MG TABLET.DR 2000 MG PO (20:37)
[2022-03-26] MEDS: cloZAPine 25 MG TABLET 75 MG PO (20:37)
[2022-03-27 00:08] LABS: Glucose, Whole Blood 119 mg/dL (60-115)
[2022-03-27 00:08] LABS: Glucose, Whole Blood 96 mg/dL (60-115)
--- NOTE | 2022-03-27 08:02 | HO.PSYCHPN ---
Subjective Subjective Date of Service: 03/27/22 Reason For Visit: SI/psychosis Subjective Notes: Conditional Voluntary Healthcare Proxy: No Guardianship: No Medical Problems Affecting Mental Status: No Interim History: Patient was seen and discussed in rounds today. Records and plans were reviewed. He is being increased on his cross 0 x 25 mg daily which was implemented today. He has been isolative. No reports of anxiety or depression. He does have some auditory hallucinations but no visual. He is moderately social and pleasant. Eating and sleeping adequately. His auditory hallucinations are not command in nature. No SI. Medication Compliance: Yes Side effects from medications: No Attending Groups: Intermittent Review of Systems Review of Systems Yes all other systems are reviewed and are negative Eyes: Reports no additional eye complaints Cardiovascular: Reports no additional cardiovascular complaints and Reports palpitations (tachycardia) Respiratory: Reports no additional respiratory complaints Endocrine: Reports palpitations (tachycardia) Mental Status Exam Mental Status Exam Narrative: In today's visit he is alert, oriented and pleasant. Normal speech. Brief answers. Little eye contact. Affect is constricted. Admits to auditory hallucinations. No visual hallucinations. Some paranoia and delusions present and reported. No SI. Cognitively has slow thought processes but grossly intact. Judgment intact Diagnostics Vital Signs (24Hr): Vital Signs - 24 hr 03/26/22 08:30 03/26/22 18:00 Temperature 97.9 F 97.6 F Pulse Rate 120 H 125 H Respiratory Rate 19 Blood Pressure 136/82 150/84 H Pulse Oximetry 98 98 Oxygen Delivery Method Room Air Room Air BMI result Body Mass Index 67.9 Labs Results: 03/22/22 12:05 03/24/22 09:06 Labs: Laboratory Results - last 48 hr 03/25/22 03/25/22 03/26/22 09:05 21:13 08:59 POC Glucose 90 143 H 96 03/26/22 18:04 POC Glucose 119 H Medications Medications Current Medications Acetaminophen (Acetaminophen 325 Mg Tablet) 650 mg PO Q6H PRN PRN Reason: Headache/Pain Mild Scale (1-3) Al Hydroxide/Mg Hydroxide (Magnesium Hydrox/Alum Hydrox 30 Ml Oral.Susp) 30 ml PO Q6H PRN PRN Reason: Heartburn/Nausea Last Admin: 03/26/22 12:34 Dose: 30 ml Clozapine (Clozapine 100 Mg Tablet) 100 mg PO BEDTIME [facility] Divalproex Sodium (Divalproex Sodium 500 Mg Tablet.) 2,000 mg PO BEDTIME [facility] Last Admin: 03/26/22 20:37 Dose: 2,000 mg Hydroxyzine HCl (Hydroxyzine Hcl 25 Mg Tablet) 25 mg PO Q6H PRN PRN Reason: Anxiety Last Admin: 03/23/22 20:27 Dose: 25 mg Insulin Glargine (Insulin Glargine,Hum.Rec.Anlog 100 Unit/Ml 10 Ml Vial) 40 unit SUBCUT DAILY [facility] Last Admin: 03/26/22 09:13 Dose: 40 unit [place] Carbonate ([place] Carbonate 300 Mg Capsule) 300 mg PO BID [facility] Last Admin: 03/26/22 20:37 Dose: 300 mg Lorazepam (Lorazepam 0.5 Mg Tablet) 0.5 mg PO DAILY PRN PRN Reason: Anxiety Last Admin: 03/22/22 22:57 Dose: 0.5 mg Magnesium Hydroxide (Milk Of Magnesia 30 Ml Oral.Susp) 30 ml PO DAILY PRN PRN Reason: Constipation Last Admin: 03/24/22 09:19 Dose: 30 ml Metformin HCl (Metformin Hcl 1,000 Mg Tablet) 1,000 mg PO BIDWM [facility] Last Admin: 03/26/22 18:05 Dose: 1,000 mg Nicotine Polacrilex (Nicotine Polacrilex 2 Mg Gum) 4 mg BUCCAL Q2H PRN PRN Reason: Nicotine Cravings Risperidone (Risperidone 2 Mg Tablet) 2 mg PO BID [facility] Last Admin: 03/26/22 20:38 Dose: 2 mg Senna/Docusate Sodium (Sennosides/Docusate Sodium Tablet) 1 tab PO BID [facility] Last Admin: 03/26/22 20:38 Dose: 1 tab Sitagliptin Phosphate (Sitagliptin Phosphate 100 Mg Tablet) 100 mg PO DAILY [facility] Last Admin: 03/26/22 09:15 Dose: 100 mg Trazodone HCl (Trazodone Hcl 50 Mg Tablet) 50 mg PO BEDTIME PRN PRN Reason: Insomnia Allergies Allergies Allergy/AdvReac Type Severity Reaction Status Date / Time No Known Allergies Allergy Verified 03/22/22 11:45 Assessment & Plan Assessment & Plan (1) Schizophrenia: Status: Acute Code(s): F20.9 - Schizophrenia, unspecified Assessment and Plan: Mr. Zambrano is a 41 year-old male with hx of schizophrenia, self presented with SI with plan to cut wrist in context of increase AH and paranoid delusions. Pt reports throwing down the toilet medications as he feared they were tampered. We discussed risks, benefits and alternative treatment options. Pt agrees to restart clozaril and titrate dose. He reports constipation- add sennakot. He has tachycardia- does not want to start beta ayana. PLAN 1. Admit M3, CV, 15 min safety. 2. increase clozaril 25mg po BID- titrate daily 3. sennakot for constipation 4. collateral information 5. aftercare planning. 03/25 increase clozaril to 50mg po BID. continue daily titration of 25mg po 03/26 increase clozaril to 75mg po BID 03/27: Continue current regimen and plans. Clozaril was increased by 25 mg today with his bedtime dose I spent minutes with the patient and/or on the patient floor today, greater than?50% of which was spent counseling/coordinating care. Patient educated on: medication risk/benefits Reason for contiued inpatient stay Substantial Risk for: med/psych decompensation
[2022-03-27 08:29] LABS: Glucose, Whole Blood 96 mg/dL (60-115)
[2022-03-27 08:30] VITALS: BP 124/88; PULSE 125; RESP 18; TEMP 36.6; O2SAT 98
[2022-03-27] MEDS: Insulin Glargine,Hum.rec.anlog 100 UNIT/ML 10 ML VIAL 40 UNIT SUBCUT (08:54)
[2022-03-27] MEDS: Lithium Carbonate 300 MG CAPSULE PO ×2 (08:56→21:04)
[2022-03-27] MEDS: Sennosides/Docusate Sodium TABLET 1 TAB PO ×2 (08:56→21:04)
[2022-03-27] MEDS: risperiDONE 2 MG TABLET PO ×2 (08:56→21:04)
[2022-03-27] MEDS: metFORMIN HCl 1,000 MG TABLET 1000 MG PO ×2 (08:56→21:03)
[2022-03-27] MEDS: SITagliptin Phosphate 100 MG TABLET PO (08:57)
[2022-03-27] MEDS: Milk of Magnesia 30 ML ORAL.SUSP PO (10:18)
[2022-03-27] MEDS: cloZAPine 100 MG TABLET PO (21:04)
[2022-03-27] MEDS: Divalproex Sodium 500 MG TABLET.DR 2000 MG PO (21:04)
--- NOTE | 2022-03-28 01:09 | PC.NURSE ---
Pt declined all assessments, asks questions but does not wait for answers and interrupts responses. Pt stated during medication round he wanted to make sure all the medications were correct and he had a list so he would know. He was offered to read the labels on each medication and he declined. Instead he poured the unwrapped medication from the medication cup onto a table, looked at and appeared to count the pills, and said they were all there. Medication adherent. Pt was A&O to situation, very brief interactions, ?Yes,? he will take medication, ?No? he will not allow VS assessment, ?No,? he will not answer any questions. Otherwise cooperative and polite.
[2022-03-28 08:25] LABS: Glucose, Whole Blood 88 mg/dL (60-115)
[2022-03-28] MEDS: SITagliptin Phosphate 100 MG TABLET PO (08:30)
[2022-03-28] MEDS: metFORMIN HCl 1,000 MG TABLET 1000 MG PO (08:30)
[2022-03-28] MEDS: risperiDONE 2 MG TABLET PO ×2 (08:30→21:28)
[2022-03-28] MEDS: Lithium Carbonate 300 MG CAPSULE PO ×2 (08:30→21:28)
[2022-03-28] MEDS: Sennosides/Docusate Sodium TABLET 1 TAB PO ×2 (08:30→21:28)
[2022-03-28] MEDS: Insulin Glargine,Hum.rec.anlog 100 UNIT/ML 10 ML VIAL 40 UNIT SUBCUT (08:37)
--- NOTE | 2022-03-28 09:24 | HO.PSYCHPN ---
Subjective Subjective Date of Service: 03/28/22 Reason For Visit: SI/psychosis Subjective Notes: Conditional Voluntary Healthcare Proxy: No Guardianship: No Medical Problems Affecting Mental Status: No Interim History: Patient was seen and discussed in rounds today. Records and plans were reviewed. He has been doing fairly well and is eating and sleeping adequately. He is med compliant. This morning he wanted to refuse his point of care before his insulin being given but finally agreed to do so. He is preoccupied with his medications and checks and rechecks what he is given. No SI. No auditory or visual hallucinations. No changes were implemented today. I did not increase his Clozaril today after the increase yesterday. Medication Compliance: Yes Side effects from medications: No Attending Groups: Intermittent Review of Systems Review of Systems Yes all other systems are reviewed and are negative Eyes: Reports no additional eye complaints Cardiovascular: Reports no additional cardiovascular complaints and Reports palpitations (tachycardia) Respiratory: Reports no additional respiratory complaints Endocrine: Reports palpitations (tachycardia) Mental Status Exam Mental Status Exam Narrative: In today's visit he is alert, oriented and pleasant. Normal speech. Brief answers. Little eye contact. Affect is constricted. Admits to auditory hallucinations. No visual hallucinations. less paranoia and delusions present. No SI. Cognitively has slow thought processes but grossly intact. Judgment intact Diagnostics Vital Signs (24Hr): BMI result Body Mass Index 67.9 Labs Results: 03/22/22 12:05 03/24/22 09:06 Labs: Laboratory Results - last 48 hr 03/26/22 03/26/22 03/27/22 08:59 18:04 08:25 POC Glucose 96 119 H 96 03/28/22 08:22 POC Glucose 88 Medications Medications Current Medications Acetaminophen (Acetaminophen 325 Mg Tablet) 650 mg PO Q6H PRN PRN Reason: Headache/Pain Mild Scale (1-3) Al Hydroxide/Mg Hydroxide (Magnesium Hydrox/Alum Hydrox 30 Ml Oral.Susp) 30 ml PO Q6H PRN PRN Reason: Heartburn/Nausea Last Admin: 03/26/22 12:34 Dose: 30 ml Clozapine (Clozapine 100 Mg Tablet) 100 mg PO BEDTIME [facility] Last Admin: 03/27/22 21:04 Dose: 100 mg Divalproex Sodium (Divalproex Sodium 500 Mg Tablet.) 2,000 mg PO BEDTIME [facility] Last Admin: 03/27/22 21:04 Dose: 2,000 mg Hydroxyzine HCl (Hydroxyzine Hcl 25 Mg Tablet) 25 mg PO Q6H PRN PRN Reason: Anxiety Last Admin: 03/23/22 20:27 Dose: 25 mg Insulin Glargine (Insulin Glargine,Hum.Rec.Anlog 100 Unit/Ml 10 Ml Vial) 40 unit SUBCUT DAILY [facility] Last Admin: 03/28/22 08:37 Dose: 40 unit [place] Carbonate ([place] Carbonate 300 Mg Capsule) 300 mg PO BID [facility] Last Admin: 03/28/22 08:30 Dose: 300 mg Magnesium Hydroxide (Milk Of Magnesia 30 Ml Oral.Susp) 30 ml PO DAILY PRN PRN Reason: Constipation Last Admin: 03/27/22 10:18 Dose: 30 ml Metformin HCl (Metformin Hcl 1,000 Mg Tablet) 1,000 mg PO BIDWM [facility] Last Admin: 03/28/22 08:30 Dose: 1,000 mg Nicotine Polacrilex (Nicotine Polacrilex 2 Mg Gum) 4 mg BUCCAL Q2H PRN PRN Reason: Nicotine Cravings Risperidone (Risperidone 2 Mg Tablet) 2 mg PO BID [facility] Last Admin: 03/28/22 08:30 Dose: 2 mg Senna/Docusate Sodium (Sennosides/Docusate Sodium Tablet) 1 tab PO BID [facility] Last Admin: 03/28/22 08:30 Dose: 1 tab Sitagliptin Phosphate (Sitagliptin Phosphate 100 Mg Tablet) 100 mg PO DAILY [facility] Last Admin: 03/28/22 08:30 Dose: 100 mg Trazodone HCl (Trazodone Hcl 50 Mg Tablet) 50 mg PO BEDTIME PRN PRN Reason: Insomnia Allergies Allergies Allergy/AdvReac Type Severity Reaction Status Date / Time No Known Allergies Allergy Verified 03/22/22 11:45 Assessment & Plan Assessment & Plan (1) Schizophrenia: Status: Acute Code(s): F20.9 - Schizophrenia, unspecified Assessment and Plan: Mr. Zambrano is a 41 year-old male with hx of schizophrenia, self presented with SI with plan to cut wrist in context of increase AH and paranoid delusions. Pt reports throwing down the toilet medications as he feared they were tampered. We discussed risks, benefits and alternative treatment options. Pt agrees to restart clozaril and titrate dose. He reports constipation- add sennakot. He has tachycardia- does not want to start beta ayana. PLAN 1. Admit M3, CV, 15 min safety. 2. increase clozaril 25mg po BID- titrate daily 3. sennakot for constipation 4. collateral information 5. aftercare planning. 03/25 increase clozaril to 50mg po BID. continue daily titration of 25mg po 03/26 increase clozaril to 75mg po BID 03/27: Continue current regimen and plans. Clozaril was increased by 25 mg today with his bedtime dose 03/28: Continue current regimen and plans. Clozaril was not increased today I spent minutes with the patient and/or on the patient floor today, greater than?50% of which was spent counseling/coordinating care. Reason for contiued inpatient stay Substantial Risk for: med/psych decompensation
[2022-03-28 21:28] VITALS: BP 134/83; PULSE 114; RESP 16; TEMP 36.6; O2SAT 97
[2022-03-28] MEDS: Divalproex Sodium 500 MG TABLET.DR 2000 MG PO (21:28)
[2022-03-28] MEDS: cloZAPine 100 MG TABLET PO (21:28)
[2022-03-29 08:01] LABS: Glucose, Whole Blood 113 mg/dL (60-115)
[2022-03-29] MEDS: Insulin Glargine,Hum.rec.anlog 100 UNIT/ML 10 ML VIAL 40 UNIT SUBCUT (08:23)
[2022-03-29] MEDS: Sennosides/Docusate Sodium TABLET 1 TAB PO ×2 (08:24→22:31)
[2022-03-29] MEDS: metFORMIN HCl 1,000 MG TABLET 1000 MG PO (08:24)
[2022-03-29] MEDS: risperiDONE 2 MG TABLET PO ×2 (08:24→22:32)
[2022-03-29] MEDS: Lithium Carbonate 300 MG CAPSULE PO ×2 (08:24→22:32)
[2022-03-29] MEDS: SITagliptin Phosphate 100 MG TABLET PO (08:25)
[2022-03-29 08:47] LABS: Neut%MD 51.7 %; Neutrophils Absolute Auto 4.2 x10*3/uL (2.0-8.3); WBCANC 8.1 X10*3/uL
[2022-03-29] MEDS: Milk of Magnesia 30 ML ORAL.SUSP PO (09:50)
--- NOTE | 2022-03-29 12:26 | P.PNPSI_ITS ---
Subjective Subjective Date of Service: 03/29/22 Reason For Visit: SI/psychosis Subjective Notes: Conditional Voluntary Interim History: Pt reports having a good weekend. He reports he continues to hear voices. He reports he is not hearing neighbors. He denies SI/HI. He reports feeling calmer than when he came here. He is taking medications as prescribed, titrating clozaril to previous dose of about 300mg/daily. NO behavioral concerns Per nursing, mostly in his room. Medication Compliance: Yes Side effects from medications: No Review of Systems Review of Systems Yes all other systems are reviewed and are negative Constitutional: Reports lethargy Eyes: Reports no additional eye complaints Cardiovascular: Reports no additional cardiovascular complaints and Reports palpitations (tachycardia) Respiratory: Reports no additional respiratory complaints Gastrointestinal: Reports constipation Endocrine: Reports palpitations (tachycardia) Mental Status Exam Mental Status Exam Narrative: In today's visit he is alert, oriented and pleasant. Normal speech. Brief answers. Little eye contact. Affect is constricted. Admits to auditory hallucinations. No visual hallucinations. less paranoia and delusions present. No SI. Cognitively has slow thought processes but grossly intact. Judgment intact Diagnostics Vital Signs (24Hr): Vital Signs - 24 hr 03/28/22 21:28 Temperature 97.9 F Pulse Rate 114 H Respiratory Rate 16 Blood Pressure 134/83 Pulse Oximetry 97 Oxygen Delivery Method Room Air BMI result Body Mass Index 67.9 Labs Results: 03/22/22 12:05 03/24/22 09:06 Labs: Laboratory Results - last 48 hr 03/28/22 03/29/22 03/29/22 08:22 07:57 08:31 Absolute Neuts (auto) 4.2 POC Glucose 88 113 Medications Medications Current Medications Acetaminophen (Acetaminophen 325 Mg Tablet) 650 mg PO Q6H PRN PRN Reason: Headache/Pain Mild Scale (1-3) Al Hydroxide/Mg Hydroxide (Magnesium Hydrox/Alum Hydrox 30 Ml Oral.Susp) 30 ml PO Q6H PRN PRN Reason: Heartburn/Nausea Last Admin: 03/26/22 12:34 Dose: 30 ml Clozapine (Clozapine 100 Mg Tablet) 100 mg PO BEDTIME [facility] Last Admin: 03/28/22 21:28 Dose: 100 mg Divalproex Sodium (Divalproex Sodium 500 Mg Tablet.) 2,000 mg PO BEDTIME [facility] Last Admin: 03/28/22 21:28 Dose: 2,000 mg Hydroxyzine HCl (Hydroxyzine Hcl 25 Mg Tablet) 25 mg PO Q6H PRN PRN Reason: Anxiety Last Admin: 03/23/22 20:27 Dose: 25 mg Insulin Glargine (Insulin Glargine,Hum.Rec.Anlog 100 Unit/Ml 10 Ml Vial) 40 unit SUBCUT DAILY [facility] Last Admin: 03/29/22 08:23 Dose: 40 unit [place] Carbonate ([place] Carbonate 300 Mg Capsule) 300 mg PO BID [facility] Last Admin: 03/29/22 08:24 Dose: 300 mg Magnesium Hydroxide (Milk Of Magnesia 30 Ml Oral.Susp) 30 ml PO DAILY PRN PRN Reason: Constipation Last Admin: 03/29/22 09:50 Dose: 30 ml Metformin HCl (Metformin Hcl 1,000 Mg Tablet) 1,000 mg PO BIDWM [facility] Last Admin: 03/29/22 08:24 Dose: 1,000 mg Nicotine Polacrilex (Nicotine Polacrilex 2 Mg Gum) 4 mg BUCCAL Q2H PRN PRN Reason: Nicotine Cravings Risperidone (Risperidone 2 Mg Tablet) 2 mg PO BID [facility] Last Admin: 03/29/22 08:24 Dose: 2 mg Senna/Docusate Sodium (Sennosides/Docusate Sodium Tablet) 1 tab PO BID [facility] Last Admin: 03/29/22 08:24 Dose: 1 tab Sitagliptin Phosphate (Sitagliptin Phosphate 100 Mg Tablet) 100 mg PO DAILY [facility] Last Admin: 03/29/22 08:25 Dose: 100 mg Trazodone HCl (Trazodone Hcl 50 Mg Tablet) 50 mg PO BEDTIME PRN PRN Reason: Insomnia Allergies Allergies Allergy/AdvReac Type Severity Reaction Status Date / Time No Known Allergies Allergy Verified 03/22/22 11:45 Assessment & Plan Assessment & Plan (1) Schizophrenia: Status: Acute Code(s): F20.9 - Schizophrenia, unspecified Assessment and Plan: Mr. Zambrano is a 41 year-old male with hx of schizophrenia, self presented with SI with plan to cut wrist in context of increase AH and paranoid delusions. Pt reports throwing down the toilet medications as he feared they were tampered. We discussed risks, benefits and alternative treatment options. Pt agrees to restart clozaril and titrate dose. He reports constipation- add sennakot. He has tachycardia- does not want to start beta ayana. PLAN 1. Admit M3, CV, 15 min safety. 2. increase clozaril 25mg po BID- titrate daily 3. sennakot for constipation 4. collateral information 5. aftercare planning. 03/25 increase clozaril to 50mg po BID. continue daily titration of 25mg po 03/26 increase clozaril to 75mg po BID 03/27: Continue current regimen and plans. Clozaril was increased by 25 mg today with his bedtime dose 03/28: Continue current regimen and plans. Clozaril was not increased today 03/29 increase clozaril to 25mg po daily and 100mg po qhs. I spent minutes with the patient and/or on the patient floor today, greater than?50% of which was spent counseling/coordinating care. Reason for contiued inpatient stay Substantial Risk for: inability to function
[2022-03-29 22:05] VITALS: BP 151/95; PULSE 101; RESP 16; TEMP 36.7; O2SAT 97
[2022-03-29] MEDS: Divalproex Sodium 500 MG TABLET.DR 2000 MG PO (22:31)
[2022-03-29] MEDS: cloZAPine 100 MG TABLET PO (22:32)
[2022-03-30] MEDS: Lithium Carbonate 300 MG CAPSULE PO ×2 (09:11→20:22)
[2022-03-30] MEDS: cloZAPine 25 MG TABLET PO (09:11)
[2022-03-30] MEDS: Sennosides/Docusate Sodium TABLET 1 TAB PO ×2 (09:11→20:21)
[2022-03-30] MEDS: risperiDONE 2 MG TABLET PO ×2 (09:11→20:22)
[2022-03-30] MEDS: metFORMIN HCl 1,000 MG TABLET 1000 MG PO (09:11)
[2022-03-30] MEDS: SITagliptin Phosphate 100 MG TABLET PO (09:11)
--- NOTE | 2022-03-30 12:52 | P.PNPSI_ITS ---
Subjective Subjective Date of Service: 03/30/22 Reason For Visit: SI/psychosis Subjective Notes: Conditional Voluntary Interim History: Pt appears slightly more suspicious of medications given this AM by RN. Pt continues to report that he hears voices, which he states are always there. He reports sleeping and eating well. He denies SI/HI. No behavioral concerns Medication Compliance: Yes Review of Systems Review of Systems Yes all other systems are reviewed and are negative Constitutional: Reports lethargy Eyes: Reports no additional eye complaints Cardiovascular: Reports no additional cardiovascular complaints and Reports palpitations (tachycardia) Respiratory: Reports no additional respiratory complaints Gastrointestinal: Reports constipation Endocrine: Reports palpitations (tachycardia) Mental Status Exam Mental Status Exam Narrative: In today's visit he is alert, oriented and pleasant. Normal speech. Brief answers. Little eye contact. Affect is constricted. Admits to auditory hallucinations. No visual hallucinations. less paranoia and delusions present. No SI. Cognitively has slow thought processes but grossly intact. Judgment intact Diagnostics Vital Signs (24Hr): Vital Signs - 24 hr 03/29/22 22:05 Temperature 98.1 F Pulse Rate 101 H Respiratory Rate 16 Blood Pressure 151/95 H Pulse Oximetry 97 Oxygen Delivery Method Room Air BMI result Body Mass Index 67.9 Labs Results: 03/22/22 12:05 03/24/22 09:06 Labs: Laboratory Results - last 48 hr 03/29/22 03/29/22 07:57 08:31 Absolute Neuts (auto) 4.2 POC Glucose 113 Medications Medications Current Medications Acetaminophen (Acetaminophen 325 Mg Tablet) 650 mg PO Q6H PRN PRN Reason: Headache/Pain Mild Scale (1-3) Al Hydroxide/Mg Hydroxide (Magnesium Hydrox/Alum Hydrox 30 Ml Oral.Susp) 30 ml PO Q6H PRN PRN Reason: Heartburn/Nausea Last Admin: 03/26/22 12:34 Dose: 30 ml Clozapine (Clozapine 100 Mg Tablet) 100 mg PO BEDTIME [facility] Last Admin: 03/29/22 22:32 Dose: 100 mg Clozapine (Clozapine 25 Mg Tablet) 50 mg PO BID [facility] Divalproex Sodium (Divalproex Sodium 500 Mg Tablet.Dr) 2,000 mg PO BEDTIME [facility] Last Admin: 03/29/22 22:31 Dose: 2,000 mg Hydroxyzine HCl (Hydroxyzine Hcl 25 Mg Tablet) 25 mg PO Q6H PRN PRN Reason: Anxiety Last Admin: 03/23/22 20:27 Dose: 25 mg Insulin Glargine (Insulin Glargine,Hum.Rec.Anlog 100 Unit/Ml 10 Ml Vial) 40 unit SUBCUT DAILY [facility] Last Admin: 03/30/22 10:39 Dose: Not Given [place] Carbonate ([place] Carbonate 300 Mg Capsule) 300 mg PO BID [facility] Last Admin: 03/30/22 09:11 Dose: 300 mg Magnesium Hydroxide (Milk Of Magnesia 30 Ml Oral.Susp) 30 ml PO DAILY PRN PRN Reason: Constipation Last Admin: 03/30/22 15:45 Dose: 30 ml Metformin HCl (Metformin Hcl 1,000 Mg Tablet) 1,000 mg PO BIDWM [facility] Last Admin: 03/30/22 09:11 Dose: 1,000 mg Nicotine Polacrilex (Nicotine Polacrilex 2 Mg Gum) 4 mg BUCCAL Q2H PRN PRN Reason: Nicotine Cravings Risperidone (Risperidone 2 Mg Tablet) 2 mg PO BID [facility] Last Admin: 03/30/22 09:11 Dose: 2 mg Senna/Docusate Sodium (Sennosides/Docusate Sodium Tablet) 1 tab PO BID [facility] Last Admin: 03/30/22 09:11 Dose: 1 tab Sitagliptin Phosphate (Sitagliptin Phosphate 100 Mg Tablet) 100 mg PO DAILY [facility] Last Admin: 03/30/22 09:11 Dose: 100 mg Trazodone HCl (Trazodone Hcl 50 Mg Tablet) 50 mg PO BEDTIME PRN PRN Reason: Insomnia Allergies Allergies Allergy/AdvReac Type Severity Reaction Status Date / Time No Known Allergies Allergy Verified 03/22/22 11:45 Assessment & Plan Assessment & Plan (1) Schizophrenia: Status: Acute Code(s): F20.9 - Schizophrenia, unspecified Assessment and Plan: Mr. Zambrano is a 41 year-old male with hx of schizophrenia, self presented with SI with plan to cut wrist in context of increase AH and paranoid delusions. Pt reports throwing down the toilet medications as he feared they were tampered. We discussed risks, benefits and alternative treatment options. Pt agrees to restart clozaril and titrate dose. He reports constipation- add sennakot. He has tachycardia- does not want to start beta ayana. PLAN 1. Admit M3, CV, 15 min safety. 2. increase clozaril 25mg po BID- titrate daily 3. sennakot for constipation 4. collateral information 5. aftercare planning. 03/25 increase clozaril to 50mg po BID. continue daily titration of 25mg po 03/26 increase clozaril to 75mg po BID 03/27: Continue current regimen and plans. Clozaril was increased by 25 mg today with his bedtime dose 03/28: Continue current regimen and plans. Clozaril was not increased today 03/29 increase clozaril to 25mg po daily and 100mg po qhs. 03/30 increase clozaril to 50mg po daily and 150mg po qhs. I spent minutes with the patient and/or on the patient floor today, greater than?50% of which was spent counseling/coordinating care. Reason for contiued inpatient stay Substantial Risk for: inability to function
[2022-03-30] MEDS: Milk of Magnesia 30 ML ORAL.SUSP PO (15:45)
[2022-03-30] MEDS: Divalproex Sodium 500 MG TABLET.DR 2000 MG PO (20:21)
[2022-03-30] MEDS: cloZAPine 25 MG TABLET 50 MG PO (20:22)
[2022-03-30] MEDS: cloZAPine 100 MG TABLET PO (20:22)
[2022-03-30 20:28] VITALS: BP 158/84; PULSE 122; RESP 18; TEMP 36.6; O2SAT 98
[2022-03-30] MEDS: Acetaminophen 325 MG TABLET 650 MG PO (21:14)
[2022-03-31] MEDS: Sennosides/Docusate Sodium TABLET 1 TAB PO ×2 (08:23→20:11)
[2022-03-31] MEDS: Lithium Carbonate 300 MG CAPSULE PO ×2 (08:23→20:12)
[2022-03-31] MEDS: SITagliptin Phosphate 100 MG TABLET PO (08:24)
[2022-03-31] MEDS: cloZAPine 25 MG TABLET 50 MG PO (08:24)
[2022-03-31] MEDS: risperiDONE 2 MG TABLET PO ×2 (08:24→20:11)
[2022-03-31] MEDS: metFORMIN HCl 1,000 MG TABLET 1000 MG PO (08:24)
--- NOTE | 2022-03-31 13:07 | MHC.CLN ---
F/U WEIGHT DISCREPANCY NOTED. 03/26/22=240 KG; 03/23/22=127 KG. NURSING AWARE OF DISCREPANCY. PATIENT STATED THAT HE HAS NO CONCERNS WITH MEALS.
--- NOTE | 2022-03-31 14:16 | P.PNPSI_ITS ---
Subjective Subjective Date of Service: 03/31/22 Reason For Visit: SI/psychosis Subjective Notes: Conditional Voluntary Interim History: Pt mostly in bed. He continues to report he does not feel safe to return to his apartment and planning to go to his friend's house instead. He reports he hears voices all the time. He denies SI/HI. He appears internally preoccupied, suspicious. He is sleeping in the night. He signed 3 day notice, does not agree to stay a little bit longer to further adjust clozaril. He declines VNA services. Medication Compliance: Yes Review of Systems Review of Systems Yes all other systems are reviewed and are negative Constitutional: Reports lethargy Eyes: Reports no additional eye complaints Cardiovascular: Reports no additional cardiovascular complaints and Reports palpitations (tachycardia) Respiratory: Reports no additional respiratory complaints Gastrointestinal: Reports constipation Endocrine: Reports palpitations (tachycardia) Mental Status Exam Mental Status Exam Narrative: In today's visit he is alert, oriented and pleasant. Normal speech. Brief answers. Little eye contact. Affect is constricted. Admits to auditory hallucinations. No visual hallucinations. less paranoia and delusions present. No SI. Cognitively has slow thought processes but grossly intact. Judgment intact Diagnostics Vital Signs (24Hr): Vital Signs - 24 hr 03/30/22 20:28 Temperature 97.8 F Pulse Rate 122 H Respiratory Rate 18 Blood Pressure 158/84 H Pulse Oximetry 98 Oxygen Delivery Method Room Air BMI result Body Mass Index 67.9 Labs Results: 03/22/22 12:05 03/24/22 09:06 Medications Medications Current Medications Acetaminophen (Acetaminophen 325 Mg Tablet) 650 mg PO Q6H PRN PRN Reason: Headache/Pain Mild Scale (1-3) Last Admin: 03/30/22 21:14 Dose: 650 mg Al Hydroxide/Mg Hydroxide (Magnesium Hydrox/Alum Hydrox 30 Ml Oral.Susp) 30 ml PO Q6H PRN PRN Reason: Heartburn/Nausea Last Admin: 03/26/22 12:34 Dose: 30 ml Clozapine (Clozapine 100 Mg Tablet) 100 mg PO BEDTIME CLAUS Last Admin: 03/30/22 20:22 Dose: 100 mg Clozapine (Clozapine 25 Mg Tablet) 50 mg PO BID CLAUS Last Admin: 03/31/22 08:24 Dose: 50 mg Divalproex Sodium (Divalproex Sodium 500 Mg Tablet.) 2,000 mg PO BEDTIME CLAUS Last Admin: 03/30/22 20:21 Dose: 2,000 mg Hydroxyzine HCl (Hydroxyzine Hcl 25 Mg Tablet) 25 mg PO Q6H PRN PRN Reason: Anxiety Last Admin: 03/23/22 20:27 Dose: 25 mg Insulin Glargine (Insulin Glargine,Hum.Rec.Anlog 100 Unit/Ml 10 Ml Vial) 40 unit SUBCUT DAILY [facility] Last Admin: 03/31/22 08:27 Dose: Not Given [place] Carbonate ([place] Carbonate 300 Mg Capsule) 300 mg PO BID [facility] Last Admin: 03/31/22 08:23 Dose: 300 mg Magnesium Hydroxide (Milk Of Magnesia 30 Ml Oral.Susp) 30 ml PO DAILY PRN PRN Reason: Constipation Last Admin: 03/30/22 15:45 Dose: 30 ml Metformin HCl (Metformin Hcl 1,000 Mg Tablet) 1,000 mg PO BIDWM [facility] Last Admin: 03/31/22 08:24 Dose: 1,000 mg Nicotine Polacrilex (Nicotine Polacrilex 2 Mg Gum) 4 mg BUCCAL Q2H PRN PRN Reason: Nicotine Cravings Risperidone (Risperidone 2 Mg Tablet) 2 mg PO BID [facility] Last Admin: 03/31/22 08:24 Dose: 2 mg Senna/Docusate Sodium (Sennosides/Docusate Sodium Tablet) 1 tab PO BID [facility] Last Admin: 03/31/22 08:23 Dose: 1 tab Sitagliptin Phosphate (Sitagliptin Phosphate 100 Mg Tablet) 100 mg PO DAILY [facility] Last Admin: 03/31/22 08:24 Dose: 100 mg Trazodone HCl (Trazodone Hcl 50 Mg Tablet) 50 mg PO BEDTIME PRN PRN Reason: Insomnia Allergies Allergies Allergy/AdvReac Type Severity Reaction Status Date / Time No Known Allergies Allergy Verified 03/22/22 11:45 Assessment & Plan Assessment & Plan (1) Schizophrenia: Status: Acute Code(s): F20.9 - Schizophrenia, unspecified Assessment and Plan: Mr. Zambrano is a 41 year-old male with hx of schizophrenia, self presented with SI with plan to cut wrist in context of increase AH and paranoid delusions. Pt reports throwing down the toilet medications as he feared they were tampered. We discussed risks, benefits and alternative treatment options. Pt agrees to restart clozaril and titrate dose. He reports constipation- add sennakot. He has tachycardia- does not want to start beta ayana. PLAN 1. Admit M3, CV, 15 min safety. 2. increase clozaril 25mg po BID- titrate daily 3. sennakot for constipation 4. collateral information 5. aftercare planning. 03/25 increase clozaril to 50mg po BID. continue daily titration of 25mg po 03/26 increase clozaril to 75mg po BID 03/27: Continue current regimen and plans. Clozaril was increased by 25 mg today with his bedtime dose 03/28: Continue current regimen and plans. Clozaril was not increased today 03/29 increase clozaril to 25mg po daily and 100mg po qhs. 03/30 increase clozaril to 50mg po daily and 150mg po qhs. 03/31 increase clozaril by 25mg- 75mg po daily and 150mg po qhs I spent minutes with the patient and/or on the patient floor today, greater than?50% of which was spent counseling/coordinating care. Reason for contiued inpatient stay Substantial Risk for: inability to function
[2022-03-31] MEDS: Milk of Magnesia 30 ML ORAL.SUSP PO (14:50)
[2022-03-31 20:00] VITALS: BP 153/91; PULSE 111; RESP 16; TEMP 36.7; O2SAT 96
[2022-03-31] MEDS: cloZAPine 25 MG TABLET 75 MG PO (20:10)
[2022-03-31] MEDS: Divalproex Sodium 500 MG TABLET.DR 2000 MG PO (20:10)
[2022-03-31] MEDS: cloZAPine 100 MG TABLET PO (20:11)
[2022-03-31] MEDS: Acetaminophen 325 MG TABLET 650 MG PO (20:12)
[2022-04-01] MEDS: cloZAPine 25 MG TABLET 75 MG PO ×2 (09:07→20:22)
[2022-04-01] MEDS: SITagliptin Phosphate 100 MG TABLET PO (09:07)
[2022-04-01] MEDS: Sennosides/Docusate Sodium TABLET 1 TAB PO ×2 (09:07→20:23)
[2022-04-01] MEDS: risperiDONE 2 MG TABLET PO ×2 (09:07→20:22)
[2022-04-01] MEDS: Lithium Carbonate 300 MG CAPSULE PO ×2 (09:08→20:22)
[2022-04-01] MEDS: metFORMIN HCl 1,000 MG TABLET 1000 MG PO (09:08)
[2022-04-01] MEDS: Milk of Magnesia 30 ML ORAL.SUSP PO (15:16)
--- NOTE | 2022-04-01 16:26 | P.PNPSI_ITS ---
Subjective Subjective Date of Service: 04/01/22 Reason For Visit: SI/psychosis Subjective Notes: Conditional Voluntary and 3 Day Interim History: Pt continues to be mostly in bed. He continues to report hearing voices. He is suspicious about his medications here in hospital and decline lantus. He states he would only take it when d/c and at home. He does not feel safe returning to his apartment, states he will go to friend's house. He denies SI/HI. No aggression towards self or others. Medication Compliance: Yes Side effects from medications: No Review of Systems Review of Systems Yes all other systems are reviewed and are negative Constitutional: Reports lethargy Eyes: Reports no additional eye complaints Cardiovascular: Reports no additional cardiovascular complaints and Reports palpitations (tachycardia) Respiratory: Reports no additional respiratory complaints Gastrointestinal: Reports constipation Endocrine: Reports palpitations (tachycardia) Mental Status Exam Mental Status Exam Narrative: In today's visit he is alert, oriented and pleasant. Normal speech. Brief answers. Little eye contact. Affect is constricted. Admits to auditory hallucinations. No visual hallucinations. less paranoia and delusions present. No SI. Cognitively has slow thought processes but grossly intact. Judgment i ntact Diagnostics Vital Signs (24Hr): Vital Signs - 24 hr 03/31/22 20:00 Temperature 98.1 F Pulse Rate 111 H Respiratory Rate 16 Blood Pressure 153/91 H Pulse Oximetry 96 Oxygen Delivery Method Room Air BMI result Body Mass Index 67.9 Labs Results: 03/22/22 12:05 03/24/22 09:06 Medications Medications Current Medications Acetaminophen (Acetaminophen 325 Mg Tablet) 650 mg PO Q6H PRN PRN Reason: Headache/Pain Mild Scale (1-3) Last Admin: 03/31/22 20:12 Dose: 650 mg Al Hydroxide/Mg Hydroxide (Magnesium Hydrox/Alum Hydrox 30 Ml Oral.Susp) 30 ml PO Q6H PRN PRN Reason: Heartburn/Nausea Last Admin: 03/26/22 12:34 Dose: 30 ml Clozapine (Clozapine 100 Mg Tablet) 100 mg PO BEDTIME CLAUS Last Admin: 03/31/22 20:11 Dose: 100 mg Clozapine (Clozapine 25 Mg Tablet) 75 mg PO BID [facility]US Last Admin: 04/01/22 09:07 Dose: 75 mg Divalproex Sodium (Divalproex Sodium 500 Mg Tablet.) 2,000 mg PO BEDTIME CLAUS Last Admin: 03/31/22 20:10 Dose: 2,000 mg Hydroxyzine HCl (Hydroxyzine Hcl 25 Mg Tablet) 25 mg PO Q6H PRN PRN Reason: Anxiety Last Admin: 03/23/22 20:27 Dose: 25 mg Insulin Glargine (Insulin Glargine,Hum.Rec.Anlog 100 Unit/Ml 10 Ml Vial) 40 unit SUBCUT DAILY [facility] Last Admin: 04/01/22 09:08 Dose: Not Given [place] Carbonate ([place] Carbonate 300 Mg Capsule) 300 mg PO BID [facility] Last Admin: 04/01/22 09:08 Dose: 300 mg Magnesium Hydroxide (Milk Of Magnesia 30 Ml Oral.Susp) 30 ml PO DAILY PRN PRN Reason: Constipation Last Admin: 04/01/22 15:16 Dose: 30 ml Metformin HCl (Metformin Hcl 1,000 Mg Tablet) 1,000 mg PO BIDWM [facility] Last Admin: 04/01/22 09:08 Dose: 1,000 mg Nicotine Polacrilex (Nicotine Polacrilex 2 Mg Gum) 4 mg BUCCAL Q2H PRN PRN Reason: Nicotine Cravings Risperidone (Risperidone 2 Mg Tablet) 2 mg PO BID [facility] Last Admin: 04/01/22 09:07 Dose: 2 mg Senna/Docusate Sodium (Sennosides/Docusate Sodium Tablet) 1 tab PO BID [facility] Last Admin: 04/01/22 09:07 Dose: 1 tab Sitagliptin Phosphate (Sitagliptin Phosphate 100 Mg Tablet) 100 mg PO DAILY [facility] Last Admin: 04/01/22 09:07 Dose: 100 mg Trazodone HCl (Trazodone Hcl 50 Mg Tablet) 50 mg PO BEDTIME PRN PRN Reason: Insomnia Allergies Allergies Allergy/AdvReac Type Severity Reaction Status Date / Time No Known Allergies Allergy Verified 03/22/22 11:45 Assessment & Plan Assessment & Plan (1) Schizophrenia: Status: Acute Code(s): F20.9 - Schizophrenia, unspecified Assessment and Plan: Mr. Zambrano is a 41 year-old male with hx of schizophrenia, self presented with SI with plan to cut wrist in context of increase AH and paranoid delusions. Pt reports throwing down the toilet medications as he feared they were tampered. We discussed risks, benefits and alternative treatment options. Pt agrees to restart clozaril and titrate dose. He reports constipation- add sennakot. He has tachycardia- does not want to start beta ayana. PLAN 1. Admit M3, CV, 15 min safety. 2. increase clozaril 25mg po BID- titrate daily 3. sennakot for constipation 4. collateral information 5. aftercare planning. 03/25 increase clozaril to 50mg po BID. continue daily titration of 25mg po 03/26 increase clozaril to 75mg po BID 03/27: Continue current regimen and plans. Clozaril was increased by 25 mg today with his bedtime dose 03/28: Continue current regimen and plans. Clozaril was not increased today 03/29 increase clozaril to 25mg po daily and 100mg po qhs. 03/30 increase clozaril to 50mg po daily and 150mg po qhs. 03/31 increase clozaril by 25mg- 75mg po daily and 150mg po qhs 04/01 continue tx. d/c tomorrow. I spent minutes with the patient and/or on the patient floor today, greater than?50% of which was spent counseling/coordinating care. Reason for contiued inpatient stay Substantial Risk for: inability to function
[2022-04-01 18:00] VITALS: RESP 14
[2022-04-01] MEDS: Divalproex Sodium 500 MG TABLET.DR 2000 MG PO (20:22)
[2022-04-01] MEDS: cloZAPine 100 MG TABLET PO (20:22)
[2022-04-02] MEDS: risperiDONE 2 MG TABLET PO (09:05)
[2022-04-02] MEDS: cloZAPine 25 MG TABLET 75 MG PO (09:05)
[2022-04-02] MEDS: SITagliptin Phosphate 100 MG TABLET PO (09:06)
[2022-04-02] MEDS: metFORMIN HCl 1,000 MG TABLET 1000 MG PO (09:06)
[2022-04-02] MEDS: Lithium Carbonate 300 MG CAPSULE PO (09:06)
[2022-04-02] MEDS: Sennosides/Docusate Sodium TABLET 1 TAB PO (09:06)
--- NOTE | 2022-04-02 13:17 | P.DS_ITS ---
DS: Providers Provider Date of Service: 04/02/22 Date of admission: 03/23/22 13:41 Primary care physician: Unknown Physician DS: Diagnosis Discharge Diagnosis (1) Schizophrenia: Status: Acute DS: Medications Discharge Medications Home Medications: Previous Rx's Medication Instructions Recorded clozapine 100 mg tablet 100 mg PO BEDTIME #7 tabs 04/02/22 clozapine 25 mg tablet 75 mg PO BID #42 tabs 04/02/22 divalproex 500 mg tablet,delayed 2,000 mg PO BEDTIME #120 tabs 04/02/22 release insulin glargine 100 unit/mL 40 unit (0.4 mL) subcut DAILY #10 04/02/22 subcutaneous solution (Lantus mL U-100 Insulin) lithium carbonate 300 mg capsule 300 mg PO BID #60 caps 04/02/22 metformin 1,000 mg tablet 1,000 mg PO BIDWM #60 tabs 04/02/22 risperidone 2 mg tablet 2 mg PO BID #60 tabs 04/02/22 sennosides 8.6 mg-docusate sodium 1 tab PO BID #60 tabs 04/02/22 50 mg tablet (Senna Plus) sitagliptin 100 mg tablet (Januvia) 100 mg PO DAILY #30 tabs 04/02/22 Mental Status Exam Mental Status Exam Narrative: In today's visit he is alert, oriented and pleasant. Normal speech. Brief answers. Little eye contact. Affect is constricted. Admits to auditory hallucinations. No visual hallucinations. less paranoia and delusions present. No SI/HI. Cognitively has slow thought processes but grossly intact. Judgment/Insight fair x 2. Data Data Completed and Pending Completed studies during hospitalization [Text1]: 03/26/22 03/26/22 03/27/22 08:59 18:04 08:25 Absolute Neuts (auto) POC Glucose 96 119 H 96 03/28/22 03/29/22 03/29/22 08:22 07:57 08:31 Absolute Neuts (auto) 4.2 POC Glucose 88 113 DS: Summary Hospital Course Hospital Course: HPI: Subjective Notes: Shetty Warning and Conditional Voluntary Narrative: Mr. Zambrano is a 41 year-old male with hx of schizophrenia. He self presented to [facility] [place] [facility] reporting suicidal ideation with plan to cut his wrist in context of someone in the neighborhood talking about him and breaking his window. Pt reports he can hear neighbors talking about him, saying things such as you will be fucked up but he reports he does not see anyone talking. He reports hearing voices all the time during the day. He reports he has been feeling suicidal for the past 2 days. He reports he was suspicious of his own psych meds and thoughts neighbors had tampered them and flushed them down the toilet. In the ED, his utox was negative. On the unit, pt presents as pleasant. He reports hearing voices telling him that someone is looking to hurt him. He denies any plan or intent to hurt himself or others. However, due to paranoid delusions, he does not feel safe going back to his apartment. He reports sleeping and eating well. He denies HI. Past Psychiatric History: Inpatient: [facility]; [facility]; [facility] OP: Dr. Kay [facility] Past medication trials: clozaril, seroquel Suicide attempt: not attempt, thoughts of cutting wrist in the past. Medical Evaluation Reviewed: Yes HOSPITAL COURSE On the unit, pt was admitted on a CV and placed on 15 minute checks for safety. Pt reported hearing voices. He denied SI/HI. He appeared paranoid towards medications given here, inspecting them and at times refusing them as he thought they were not the right ones, despite showing him list of meds and being medications that he has been for a long time for medical and psychiatric conditions. After discussing risks, benefits and alternative treatment options, pt agreed to restart clozaril, lithium, risperidone. He presented slightly less paranoid but did sign 3 day notice and given that there was no imminent safety concerns (note that pt presented to hospital with reports of SI which have now resolved and he has not shown any signs of aggression towards self or others) he was discharged at time when 3 day was up. Collateral information gathered from his OP providers from [facility] who came to pick him up on discharge. Pt continued to report that he did not feel safe returning to his apartment and instead would plan to go to friend's house. Outreach workers reported that in past he stays at friends house for few days and ultimately returns to his apartment. There were no incidences of disruptive behaviors nor use of restraints. Status at Discharge Cognitive/behavioral status at discharge: Pt with constricted affect but in no distress. Pt continues to report AH, but denies CAH. He denies SI/HI. Less paranoia but evident by him being suspicious about his medications here in the hospital. Pt slept through the night. No signs of aggression towards self or others. Functional status at discharge: independent ambulation Overall status at discharge: patient is progressing back to baseline Time Spent with Patient Time attestation: Total time spent providing and/or coordinating discharge services: Discharge Plan Discharge Anticipated Discharge Date/Time: 04/02/22 13:03 Patient Disposition: Home Health Service Discharge Diagnosis: schizophrenia Referrals: Dr. Kay (Psychiatry) [Other] - 04/23/22 9:00 am (TELEHEALTH APPOINTMENT) [facility] [Physician] - 1 Week Discharge Medications: New clozapine 100 mg Tablet 100 mg PO BEDTIME Qty: 7 0RF divalproex 500 mg Tablet,Delayed Release (Dr/Ec) 2,000 mg PO BEDTIME Qty: 120 0RF risperidone 2 mg Tablet 2 mg PO BID Qty: 60 0RF lithium carbonate 300 mg Capsule 300 mg PO BID Qty: 60 0RF clozapine 25 mg Tablet 75 mg PO BID Qty: 42 0RF insulin glargine [Lantus U-100 Insulin] 100 unit/mL Solution 40 unit subcut DAILY Qty: 10 0RF sennosides-docusate sodium [Senna Plus] 8.6-50 mg Tablet 1 tab PO BID Qty: 60 0RF metformin 1,000 mg Tablet 1,000 mg PO BIDWM Qty: 60 0RF Januvia 100 mg Tablet 100 mg PO DAILY Qty: 30 0RF Discontinued clozapine 100 mg tablet 300 mg PO BEDTIME divalproex 500 mg tablet,delayed release (DR/EC) 4 tab PO BEDTIME risperidone 2 mg tablet 2 mg PO BID lorazepam 0.5 mg tablet 1 tab PO DAILY PRN (Reason: Anxiety) lithium carbonate 300 mg capsule 1 cap PO BID metformin 1,000 mg tablet 1 tab PO BIDWM docusate sodium 100 mg capsule 1 cap PO DAILY PRN (Reason: Constipation) clozapine 25 mg tablet 2 tab PO DAILY Januvia 100 mg tablet 1 tab PO DAILY insulin glargine [Lantus Solostar U-100 Insulin] 100 unit/mL (3 mL) insulin pen 40 unit subcut DAILY Discharge Orders: Discharge Order (Routine); Ordered 04/02/22 Ordered By: Rhona Bob Diet: Regular diet Activity on Discharge: As tolerated Stand Alone Forms: Patient Portal Discharge page, Community Support Care Plan Goals: 1. Maintain mood 2. less paranoid, less AH.VH. 3. No SI/HI 4. No aggression towards self or others Health Concerns: Follow up with PCP Plan of Treatment: 1. Take medications as prescribed 2. Go to nearest ED or 911 in event of emergency Assessment: Pt with constricted, in no distress affect. No SI/HI. No aggression towards self or others. continues to have paranoid delusions and auditory hallucinations but no imminent safety concerns at this point. Discharge Date/Time: 04/02/22 14:15
== END 2022-04-02 14:15 | disposition home health service (06) | DRG 750 ==
LOC: HO.ED 11:58 → HO.PADLT16 03-23 13:43
PROVIDERS: Emergency Medicine; Psychiatry & Neurology Psychiatry; Admitting Provider Psychiatry & Neurology Psychiatry; Emergency Provider Emergency Medicine; Visit Provider Social Worker
DX: F20.9 Schizophrenia, unspecified (principal); R45.851 Suicidal ideations; F17.210 Nicotine dependence, cigarettes, uncomplicated; Z20.822 Contact with and (suspected) exposure to COVID-19; Z71.6 Tobacco abuse counseling; Z79.4 Long term (current) use of insulin; Z79.84 Long term (current) use of oral hypoglycemic drugs; Z79.899 Other long term (current) drug therapy
CPT/HCPCS: 36415; 80048; 80053; 80061; 80164; 80178; 80307; 81003; 82077; 82607; 82746; 82947; 83036; 84439; 84443; 85025; 85048; 87635; 93005; 99285

== ENCOUNTER 2024-12-22 20:08 | Emergency (ER) | payer MEDICAID, SELFPAY ==
[2024-12-22 20:11] VITALS: BP 149/91; PULSE 108; RESP 20; TEMP 37; O2SAT 98; BMI 29.2
--- NOTE | 2024-12-22 20:13 | ED_ITS ---
HPI - Skin/Abscess/Foreign Bdy General Chief complaint: General Medical Stated complaint: rashes all over Time Seen by Provider: 12/22/24 21:57 Source: patient Mode of arrival: ambulatory Limitations: no limitations History of Present Illness ED Provider: Dr. Thom Lee HPI narrative: 44-year-old male with a history of schizophrenia, diabetes mellitus who presents emergency department for evaluation of multiple complaints. Patient states that he is having pain on the side of his tongue. He states it also the side of his tongue his turned white. Patient is also complaining of a blister to his right heel and soreness in both of his feet. Patient states that he walks a lot and he believes that the pain in his feet is due to arthritis. He states that he was using an arthritis cream that did help with his pain. Patient was also complaining of a rash in his buttocks. He states he has had the rash multiple times and it has gone away with hydrocortisone cream. Related Data Previous Rx's ?Medication ?Instructions ?Recorded clozapine 100 mg tablet 100 mg PO BEDTIME #7 tabs clozapine 25 mg tablet 75 mg (3 x 25 mg) PO BID #42 tabs 04/02/22 divalproex 500 mg tablet,delayed 2,000 mg (4 x 500 mg) PO BEDTIME 04/02/22 release #120 tabs insulin glargine 100 unit/mL 40 unit (0.4 mL) subcut D AILY #10 04/02/22 subcutaneous solution (Lantus mL U-100 Insulin) lithium carbonate 300 mg capsule 300 mg PO BID #60 cap s 04/02/22 metformin 1,000 mg tablet 1,000 mg PO BIDWM #60 tabs 0 04/02/22 risperidone 2 mg tablet 2 mg PO BID #60 tabs 2 sennosides 8.6 mg-docusate sodium 1 tab PO BID #60 tab s 04/02/22 50 mg tablet (Senna Plus) sitagliptin phosphate 100 mg 100 mg PO DAILY #30 tabs 04/02/22 tablet (Januvia) hydrocortisone 1 % topical cream 1 appl topical BID Ap ply to rash 2 12/22/24 (Cortisone (hydrocortisone)) weeks #60 grams ibuprofen 400 mg tablet 400 mg PO TID PRN fever or p ain 12/22/24 #30 tabs Allergies Allergy/AdvReac Type Severity Reaction Status Date / Time No Known Allergies Allergy Verified 12/22/24 20:19 Review of Systems Review of Systems: Yes all other systems are reviewed and are negative [facility] Social History Social History Household Members: None Housing: Apartment Do you presently have visiting nurse or other home services: No Patient Tobacco Use Status: Current someday Tobacco user Tobacco use type: Cigarette Cigarette Packs Per Day: 0.3 Cigarettes Per Day: 6.0 e-Cigarette/Vaping Use: Never Used Second Hand Smoke Exposure: No Advance Directives: No Advance Directives Information Provided: No service: No Sexual orientation: Don't Know Physical Exam Vital Signs: Vital Signs: Last Vital Signs Temp 98.6 F 12/22/24 20:11 Pulse 108 H 12/22/24 20:11 Resp 20 12/22/24 20:11 BP 149/91 H 12/22/24 20:11 Pulse Ox 98 12/22/24 20:11 O2 Del Method Room Air 12/22/24 20:11 BMI result Body Mass Index 29.2 Vital signs revealed an elevated heart rate of 108 and elevated blood pressure of 149/91 Exam: General: Awake, alert in no distress Head: Normocephalic, atraumatic EENT: Mouth revealed moist membranes, the patient does have a whitish discoloration to the lateral aspect of his right tongue with no specific lesions, no posterior erythema Extremities: Patient has a blister to his right heel does not appear to be infected. Patient has no significant abnormalities of his feet, no rashes, joints appear to be normal with no increased warmth or erythema Skin: Patient has an erythematous, scaly, dry appearing rash to his buttocks Psych: Pleasant, cooperative Course Course Course Narrative: This is an RME: Additional HPI, ROS, PE not included below will be deferred to primary provider. RME assessment and note performed by: Rosanna Gipson PA-C This is a 13-nvxg-pyv-male, with a hx of schizophrenia and diabetes, who presents to the ER with multiple complaints. Reports that he has rash on buttocks, wounds on bottom right foot. Reports that he was seen at [facility] and was given cortisone cream on it which helped but he ran out of this medication. Reports that his tongue is sore and has a cut on it. Plan: Further ER eval needed Medical Decision Making Medical Decision Making [facility] Narrative: 44-year-old male with a history of schizophrenia, diabetes mellitus who presents emergency department for evaluation of multiple complaints. Patient states that he is having pain on the side of his tongue. He states it also the side of his tongue his turned white. Patient is also complaining of a blister to his right heel and soreness in both of his feet. Patient states that he walks a lot and he believes that the pain in his feet is due to arthritis. He states that he was using an arthritis cream that did help with his pain. Patient was also complaining of a rash in his buttocks. He states he has had the rash multiple times and it has gone away with hydrocortisone cream. Vital signs revealed an elevated heart rate and elevated blood pressure. Mouth exam did not reveal any significant lesions but did have whitish discoloration to the lateral aspect of his tongue. Patient has a blister to his right heel with no other lesions or rashes noted on his foot. Patient does have a dry scaly rash on his buttocks Differential diagnosis: ?Includes but is not limited to nonspecific dermatitis, bilateral foot pain secondary to overuse/arthritis Course: 22:29 The patient's mouth exam did not reveal any significant lesions and I do not think that he needs any treatment, the whitish discoloration is normal and he may have dehydration. I told him to increase the amount of fluid that he drinks. Patient's rash in his buttocks as a nonspecific dermatitis and he was prescribed hydrocortisone 1% cream b.i.d. x2 weeks. Patient was also started on ibuprofen 400 mg 3 times a day as needed for his foot pain. He was given printed and verbal instructions and discharged home Admission/Observation Consideration of admission/observation: Escalation of care including adm ission/observation considered (No) Prescription Management I considered prescription management with: Pain Medication (Ibuprofen) and Other (Antibiotic steroid: Hydrocortisone) Chronic Conditions Patient?s care impacted by: Diabetes and Other (Schizophrenia) Discharge Plan Discharge Clinical Impression: Bilateral foot pain, Rash Patient Disposition: Home, Self-Care Additional Instructions: The pain in your feet and blister on your right heel is most likely caused by arthritis and the amount of walking that you are doing. The rash on your buttocks is nonspecific and I do not think that you have an infection at this time. I do not see any significant abnormalities in your mouth that require treatment, the dryness and whiteness on the side of your tongue is most likely due to dehydration, you should increase the amount of fluid that you drink. Take ibuprofen 400 mg pills, 1 pills every 6 hours as needed for pain in your feet. Apply cortisone cream to your rash on your buttocks twice a day for 1 week. Continue taking your other medications as prescribed by your providers. Follow-up with your doctor in 2 days. Please return to the emergency department if your symptoms get worse or if you develop any symptoms that are concerning to you. Prescriptions: New ibuprofen 400 mg tablet 400 mg PO TID PRN (Reason: fever or pain) Qty: 30 0RF hydrocortisone [Cortisone (hydrocortisone)] 1 % cream 1 appl topical BID 14 Days Qty: 60 0RF No Action clozapine 100 mg Tablet 100 mg PO BEDTIME Qty: 7 0RF divalproex 500 mg Tablet,Delayed Release (Dr/Ec) 2,000 mg PO BEDTIME Qty: 120 0RF risperidone 2 mg Tablet 2 mg PO BID Qty: 60 0RF lithium carbonate 300 mg Capsule 300 mg PO BID Qty: 60 0RF clozapine 25 mg Tablet 75 mg PO BID Qty: 42 0RF insulin glargine [Lantus U-100 Insulin] 100 unit/mL Solution 40 unit subcut DAILY Qty: 10 0RF sennosides-docusate sodium [Senna Plus] 8.6-50 mg Tablet 1 tab PO BID Qty: 60 0RF metformin 1,000 mg Tablet 1,000 mg PO BIDWM Qty: 60 0RF Januvia 100 mg Tablet 100 mg PO DAILY Qty: 30 0RF Print Language: Chinese
--- NOTE | 2024-12-22 20:26 | MHC.EDTECH ---
Pt refusing labs, Rosanna avery
--- OUTSIDE RECORDS SUMMARY | 2024-12-22 21:01 | XMS_ITS | Encounter Summary ---
Author Organization [facility] Address [address] [place] [address] Care Team Providers Care Asp Net Mvc Developer Name Role Phone Ryan Sigifredorhiannon PORTER Primary Care Provider [phone] Reason for Visit * Reason Comments Care Coordination Encounter Details Date Type Department Care Team ([facility] st Contact Info) Description 12/20/2024 Interim Notes [facility] Main [address] [place] [id number] Boogie Yessica [address] [place] [address] Social History Tobacco Use Types Packs/Day Years Used Date Smoking Tobacco: Every Day Cigarettes 0.3 19 Started: 10/21/1994; Last attempted to quit: 10/21/2013 Smokeless Tobacco: Never Comments:Starged smoking age 22 Alcohol Use Standard Drinks/Week Comments No 0 (1 standard drink = 0.6 oz pur e alcohol) Social Connections Answer Date Recorded Connectedness 99 09/26/2023 Financial Resource Strain Answer Date R ecorded Financial Resource Strain 0 2018 Stress Answer Date Recorded Stress 0 02/24/2019 Physical Activity Answer Date Recorded Physical Activity 0 02/24/2019 Food Insecurity Answer Date Recorded Food 0 02/24/2019 Transportation Needs Answer Date Record ed Transportation 0 02/24/2019 Housing Stability Answer Date Recorded Housing 0 02/24/2019 Safety and Environment Answer Date Edson rded Safety 0 02/24/2019 Utilities Answer Date Recorded Utilities 0 02/24/2019 Employment Answer Date Recorded Employment 0 02/24/2019 Sex and Gender Information Value Date Recorded Sex Assigned at Male 07/08/2017 12:38 PM PST Legal Sex Male 11:36 AM PDT Gender Identity Male 07/08/2017 12:38 PM PST Sexual Orientation Straight 07/08/2017 12 :38 PM PST documented as of this encounter Progress Notes * Yessica Hyman - 12/20/2024 1:21 PM EDT Patient identified through ADT feed. Patient admitted 12/19/24 and discharged 12/19/24 from [facility]. Notification sent to Krystle EDWARDS and Jeanna GRIGGS. documented in this encounter Plan of Treatment Not on file documented as of this encounter Goals Goal Patient Goal Type Associated Problems Recent Progress Patient-Stated? Author Have 3 meals a day Diet On track(11/27/19 10:51 AM PDT) No Jen Perry RD Reduce portion size Diet Not on track(11/27/19 10:51 AM PDT) No Jen Perry RD Reduce sugar intake Diet Not on track(11/27/19 10:51 AM PDT) No Jen Perry RD Decrease soda or juice intake Diet Not on track(11/27/19 10:51 AM PDT) No Jen Perry RD Increase physical activity Exercise Not on track(11/27/19 10:51 AM PDT) No Jen ePrry RD documented as of this encounter Visit Diagnoses Not on filedocumented in this encounter Additional Health Concerns Assessment Noted Time PHQ-9 Depression Total Score: 0 06/17/20 2:52 PM PST documented as of this encounter Care Teams Asp Net Mvc Developer Relationship Specialty Start Date End Date Catherine Davis NP [address] [place] [address] PCP - General Family Medicine, DATA ANALYST ETL DEVELOPER 05/10/24 documented as of this encounter
[2024-12-22 22:30] VITALS: BP 122/78; PULSE 98; RESP 17; TEMP 36.7; O2SAT 99
[2024-12-22] MEDS: Ibuprofen 400 MG TABLET PO (22:34)
== END 2024-12-22 22:30 | disposition home or self-care (01) ==
PROVIDERS: Emergency Provider Emergency Medicine Emergency Medical Services
DX: R21 Rash and other nonspecific skin eruption (principal); M79.672 Pain in left foot; M79.671 Pain in right foot; E11.9 Type 2 diabetes mellitus without complications; F17.210 Nicotine dependence, cigarettes, uncomplicated
CPT/HCPCS: 99284

== ENCOUNTER 2024-12-23 07:07 | Emergency (ER) | payer MEDICAID, SELFPAY ==
[2024-12-23 07:15] VITALS: BP 114/84; PULSE 98; RESP 14; TEMP 36.1; O2SAT 97
--- NOTE | 2024-12-23 07:30 | PC.NURSE ---
Pt comes to ED today reporting c/o pain to all finger tips x2-3 weeks. Pt denies injury to finger tip and i unable to report the origin of the pain. He does state that putting water on them improves that pain. Pt also complains of 3 bumps to posterior aspect of R hand and states he is concerns they are infected. A&Ox3. Pt able to demonstrates full ROM of all digits, both hands, and both wrists without difficulty. Color of bilat/hand and digits is healthy and consistent with ethnicity. Pt sitting quietly awaiting ED provider.
[2024-12-23 08:00] VITALS: BP 120/79; PULSE 94; RESP 18; TEMP 36.8; O2SAT 96
--- NOTE | 2024-12-23 08:58 | ED.GENADULT ---
HPI - General Adult General Chief complaint: Extremity Problem Stated complaint: hand pain Time Seen by Provider: 12/23/24 08:57 Source: patient, RN notes reviewed and old records reviewed Mode of arrival: ambulatory Limitations: no limitations History of Present Illness ED Provider: Demario SHELTON narrative: Patient is a 44-year-old male with history of schizophrenia, diabetes presenting to the emergency department with complaint of pain to his fingertips for the past 3 weeks. States the pain is to both the palmar and dorsal sides of his fingertips. He denies any injury or trauma to the area. States the pain improves when he puts water or lotion onto his fingertips but returns eventually. Patient was seen in this emergency department yesterday but did not report this complaint at that time. States he thinks it may be related to dehydration at times and has been trying to increase his water intake. Also complaining of bumps to the dorsal aspect of both hands. Denies any discharge or drainage from the areas. Denies fevers. MD complaint: fingertip pain Onset (ago): week(s) Related Data Previous Rx's ?Medication ?Instructions ?Recorded clozapine 100 mg tablet 100 mg PO BEDTIME #7 tabs 04/02/22 clozapine 25 mg tablet 75 mg (3 x 25 mg) PO BID #42 tabs 04/02/22 divalproex 500 mg tablet,delayed 2,000 mg (4 x 500 mg) PO BEDTIME 04/02/22 release #120 tabs insulin glargine 100 unit/mL 40 unit (0.4 mL) subcut DAILY #10 04/02/22 subcutaneous solution (Lantus mL U-100 Insulin) lithium carbonate 300 mg capsule 300 mg PO BID #60 caps 04/02/22 metformin 1,000 mg tablet 1,000 mg PO BIDWM #60 tabs 04/02/22 risperidone 2 mg tablet 2 mg PO BID #60 tabs 04/02/22 sennosides 8.6 mg-docusate sodium 1 tab PO BID #60 tabs 04/02/22 50 mg tablet (Senna Plus) sitagliptin phosphate 100 mg 100 mg PO DAILY #30 tabs 04/02/22 tablet (Januvia) hydrocortisone 1 % topical cream 1 appl topical BID Apply to rash 2 12/22/24 (Cortisone (hydrocortisone)) weeks #60 grams ibuprofen 400 mg tablet 400 mg PO TID PRN fever or pain 12/22/24 #30 tabs emollient combination no.119 1 appl topical DAILY 2 weeks #454 12/23/24 (Eucerin Advanced Repair topical grams cream) salicylic acid 28.5 % topical 1 appl topical DAILY #10 mL 12/23/24 film-forming soln extend release w/appl Allergies Allergy/AdvReac Type Severity Reaction Status Date / Time No Known Allergies Allergy Verified 12/23/24 07:19 Review of Systems Review of Systems: As per HPI Yes all other systems are reviewed and are negative Constitutional: Constitutional: Reports as per HPI [facility] Social History Social History Household Members: None Housing: Apartment Do you presently have visiting nurse or other home services: No Patient Tobacco Use Status: Current someday Tobacco user Tobacco use type: Cigarette Cigarette Packs Per Day: 0.3 Cigarettes Per Day: 6.0 Smoked in Last 30 Days: No e-Cigarette/Vaping Use: Never Used Second Hand Smoke Exposure: No Use of substances other than those prescribed or required for medical reasons: No Advance Directives: No Advance Directives Information Provided: No Do you have a plan to hurt others: No Plan service: No Sexual orientation: Don't Know Physical Exam ED Vital Signs: Vital Signs - 24 hr 12/23/24 07:15 12/23/24 08:00 Temperature 97 F 98.2 F Pulse Rate 98 94 Respiratory Rate 14 18 Blood Pressure 114/84 120/79 Pulse Oximetry 97 96 Oxygen Delivery Method Room Air Room Air BMI result Body Mass Index 30.0 Vital signs have been reviewed and appear to be correct. Blood pressure normal. Heart rate normal. Respiratory rate normal. Temperature normal. Oxygen saturation normal. Const General: cooperative, healthy appearing and no acute distress Orientation/consciousness: oriented to person, oriented to place, oriented to time and patient oriented x3 Limitations: no limitations HENWA Head: Yes normocephalic and Yes atraumatic Ears: external ears normal General nose exam: Normal external nose present Face and sinus: Yes face symmetric Mouth: oropharynx normal and moist mucous membranes Throat: Yes uvula midline Eyes Pupils: Equal, round and reactive pupils present Neck Neck: Yes normal visual inspection and Yes supple Resp Effort & Inspection: normal respiratory effort and able to speak in complete sentences Auscultation: clear to auscultation bilaterally Cardio Rate: regular rate Rhythm: regular rhythm Heart sounds: S1 normal heart sound present and S2 normal heart sound present Skin General skin exam: elasticity normal and turgor normal Neuro General: oriented to person, oriented to place, oriented to time, patient oriented x3, moves all extremities, no focal motor deficits and CN's II-XI intact bilaterally Cranial nerves: Yes Equal, round and reactive pupils present Cognition (Neuro): normal cognition Extrem Other: fingertips are without swelling, erythema, or warmth and are nontender to palpation with capillary refill <3 seconds General: Yes full ROM, Yes no pedal edema and Yes no calf tenderness Right upper extremity: Extremity exam: right hand Details: normal capillary refill, neuromotor exam normal, neurosensory exam normal, normal ROM of fingers, no swelling and other (multiple cutaneous warts to dorsal aspect of hand); no tenderness, no unusual warmth and no ecchymosis Left upper extremity: hand Details: normal capillary refill, neuromotor exam normal, neurosensory exam normal, normal ROM of fingers, no swelling and other (multiple cutaneous warts to dorsal hand); no tenderness, no unusual warmth and no ecchymosis Psych Mental Status: mental status grossly normal Affect: normal affect Thought process: Normal thought process present Medical Decision Making Medical Decision Making MDM Narrative: Patient is a 44-year-old male with history of schizophrenia, diabetes presenting to the emergency department with complaint of pain to his fingertips for the past 3 weeks. On exam patient is awake, A+Ox3, VS WNL, afebrile, normal neurological exam without focal deficits, physical exam findings as above. Given reported symptoms and physical exam findings, initial differential includes but is not limited to cutaneous warts, seborrheic dermatitis, contact dermatitis. Do not suspect cellulitis, paronychia/felon. Physical exam remarkable for cutaneous warts to dorsal aspect of bilateral hands, fingertips unremarkable bilaterally. Will send prescription for salicylic acid for the warts as well as Eucerin for fingertips as patient reports relief when lotion as applied. Advised follow up with PCP as needed. Return precautions discussed at bedside. Patient verbalized understanding of and agreement with plan. Differential Diagnosis Differential Diagnoses: The differential diagnosis associated with the presentation includes As per [facility] Admission/Observation Consideration of admission/observation: Escalation of care including admission/observation considered Patient would have been admitted to the hospital had their work up had any findings where hospital admission was appropriate and their clinical presentation warranted hospital admission. External Record Review External record reviewed: Inpatient record, Office record and Outpatient record Prescription Management I considered prescription management with: Other Discharge Plan Discharge Clinical Impression: Cutaneous wart Qualifiers: Viral wart type: other viral wart Qualified Code(s): B07.8 - Other viral warts Patient Disposition: Home, Self-Care Instructions: Common Wart (ED) Additional Instructions: You were evaluated in the emergency department with complaint of pain to your fingertips as well as warts on the back of your hands. We are prescribing a cream for you to apply to your fingertips as well as salicylic acid to apply to the warts. Soak warts in warm water for 5 minutes. Dry area thoroughly. Apply to entire wart surface, allow to dry, and then apply a second time. Avoid contact with surrounding skin. Continue therapy once or twice daily. Resolution may be expected after 4 to 6 weeks; some warts may take longer to remove. Follow up with your primary care provider as needed. Return to the emergency department with new or concerning symptoms. Prescriptions: New salicylic acid 28.5 % film-forming soln ER w/ appl 1 appl topical DAILY Qty: 10 0RF Rx Instructions: apply to entire wart site; allow to dry; repeat application until warts have resolved Eucerin Advanced Repair Cream 1 appl topical DAILY 14 Days Qty: 454 0RF No Action clozapine 100 mg Tablet 100 mg PO BEDTIME Qty: 7 0RF divalproex 500 mg Tablet,Delayed Release (Dr/Ec) 2,000 mg PO BEDTIME Qty: 120 0RF risperidone 2 mg Tablet 2 mg PO BID Qty: 60 0RF lithium carbonate 300 mg Capsule 300 mg PO BID Qty: 60 0RF clozapine 25 mg Tablet 75 mg PO BID Qty: 42 0RF insulin glargine [Lantus U-100 Insulin] 100 unit/mL Solution 40 unit subcut DAILY Qty: 10 0RF sennosides-docusate sodium [Senna Plus] 8.6-50 mg Tablet 1 tab PO BID Qty: 60 0RF metformin 1,000 mg Tablet 1,000 mg PO BIDWM Qty: 60 0RF Januvia 100 mg Tablet 100 mg PO DAILY Qty: 30 0RF ibuprofen 400 mg tablet 400 mg PO TID PRN (Reason: fever or pain) Qty: 30 0RF hydrocortisone [Cortisone (hydrocortisone)] 1 % cream 1 appl topical BID 14 Days Qty: 60 0RF Print Language: Serbian
[2024-12-23 09:55] VITALS: BP 120/79; PULSE 94; RESP 18; TEMP 36.8; O2SAT 96
== END 2024-12-23 09:58 | disposition home or self-care (01) ==
PROVIDERS: Emergency Provider Emergency Medicine
DX: B07.8 Other viral warts (principal); M79.641 Pain in right hand; M79.642 Pain in left hand; F17.210 Nicotine dependence, cigarettes, uncomplicated
CPT/HCPCS: 99283; 99284